=== PATIENT | male | born 1995 | race African-American/Black ===

== ENCOUNTER 2016-12-17 11:01 | Inpatient (IN) | payer OTHER ==
[2016-12-17] VITALS (7 sets, daily range): BP systolic 147–185; BP diastolic 80–97; PULSE 86–114; RESP 20–34; TEMP 98.5–99; O2SAT 96–99
[~2016-12-17] VITALS: Ht 182.9 cm; Wt 126.2 kg
[~2016-12-17 11:01] MED LIST: LEVEMIR SQ; NOVOLOGSS SQ
[2016-12-17] MEDS ORDERED: ONDANSETRON HCL 4 MG/2 ML VIAL ONE (11:29)
[2016-12-17] MEDS ORDERED: ONDANSETRON HCL 4 MG/2 ML VIAL IVP ONE (11:30)
[2016-12-17] MEDS ORDERED: MORPHINE SULFATE 4 MG/ML INJ IV ONE (11:30)
--- NOTE | 2016-12-17 11:35 | PD ---
HPI Chief Complaint: Diabetic Time Seen by Provider: 11:22 Travel History International Travel<30 days: No Contact w/Intl Traveler<30days: No Traveled to known affect area: No History of Present Illness HPI This is a 21-year-old male with a history of insolent dependent diabetes, juvenile onset, who presents today with points of epigastric pain with associated nausea vomiting. Patient also reports generalized abdominal discomfort. He denies any fevers, chills. Patient states that he's not had DKA in the past. He states he has had a history of pancreatitis in the past and states this feels like his previous peptic hepatitis. Patient reports that his blood sugar has been elevated in the 300s. There are no other complaints time my examination. PFSH Past Medical History Diabetes: Yes Diminished Hearing: No Social History Alcohol Use: No Tobacco Use: No Substance Use: No Allergies-Medications (Allergen,Severity, Reaction): Coded Allergies: No Known Allergies (Unverified , 10/03/14) Reported Meds & Prescriptions Reported Meds & Active Scripts Active Levemir Insulin (Insulin Detemir) 100 Units/Ml Inj 14 Units SQ HS Novolog Insulin Supplemental Scale (Insulin Aspart) 100 /Ml Inj 2-12 Units SQ TIDACHS Max dose at bedtime:(10)units sugars less than 70, (0)units sugars 150-199, (2)units sugars 200-249, (4)units sugars 250-299, (7)units sugars 300-349, (10)units sugars >349, (12)units Review of Systems Except as stated in HPI: all other systems reviewed are Neg General / Constitutional: No: Fever, Chills HENT: No: Headaches, Lightheadedness Cardiovascular: No: Chest Pain or Discomfort, Palpitations Respiratory: No: Cough, Shortness of Breath Gastrointestinal: Positive: Nausea, Vomiting, Abdominal Pain (worsen the epigastric), No: Changes in Bowel Habits Genitourinary: Positive: Frequency, No: Dysuria Musculoskeletal: No: Weakness, Pain Neurologic: No: Weakness, Dizziness, Headache Physical Exam Narrative GENERAL: Well-nourished, well-developed patient. SKIN: Focused skin assessment warm/dry. HEAD: Normocephalic/atraumatic. EYES: No scleral icterus. No injection or drainage. NECK: Supple, trachea midline. CARDIOVASCULAR: Regular rate and rhythm without murmurs, gallops, or rubs. RESPIRATORY: Breath sounds equal bilaterally. No accessory muscle use. GASTROINTESTINAL: Abdomen soft, nondistended. Patient has tenderness in his epigastrium. There is no rebound or guarding. No pulsatile masses. MUSCULOSKELETAL: No cyanosis, or edema. NEUROLOGICAL: Awake and alert. Cranial nerves II through XII intact. Motor grossly within normal limits. Five out of 5 muscle strength in all muscle groups. Normal speech. Data Data Last Documented VS Vital Signs Date Time Temp Pulse Resp B/P Pulse Ox O2 Delivery O2 Flow Rate FiO2 12/17/16 12:22 20 98 Room Air 12/17/16 11:03 98.5 87 172/92 Orders Ondansetron Inj (Zofran Inj) (12/17/16 11:29) Complete Blood Count With Diff (12/17/16 11:27) Comprehensive Metabolic Panel (12/17/16 11:27) Lipase (12/17/16 11:27) Urinalysis - C+S If Indicated (12/17/16 11:27) Beta Hydroxybutyrate (Acetone) (12/17/16 11:27) Morphine Inj (Morphine Inj) (12/17/16 11:30) Ondansetron Inj (Zofran Inj) (12/17/16 11:30) Digital Marketing Apprentice / Telemetry BROOKE.Q8H (12/17/16 13:05) ^ Insert Iv (12/17/16 13:05) Diet Npo (12/17/16 Lunch) Sodium Chlor 0.9% 1000 Ml Inj (Ns 1000 M (12/17/16 13:05) Dext 5%-Nacl 0.9% 1000 Ml Inj (D5w-Ns 10 (12/17/16 13:05) Insulin Human Regular Inj (Novolin R Inj (12/17/16 13:15) Insulin Regular (Iv Infusion) (Novolin R (12/17/16 13:15) Potassium Chlor 40 Meq Premix (Kcl 40 Me (12/17/16 13:15) Potassium Chlor 40 Meq Premix (Kcl 40 Me (12/17/16 13:15) Potassium Chlor 20 Meq Premix (Kcl 20 Me (12/17/16 13:15) Potassium Chlor 20 Meq Premix (Kcl 20 Me (12/17/16 13:15) Potassium Chlor 20 Meq Premix (Kcl 20 Me (12/17/16 13:15) Potassium Chlor 20 Meq Premix (Kcl 20 Me (12/17/16 13:15) Potassium Chlor 20 Meq Premix (Kcl 20 Me (12/17/16 13:15) Potassium Chlor 20 Meq Premix (Kcl 20 Me (12/17/16 13:15) Sodium Bicarbonate 8.4% Inj (Sodium Bica (12/17/16 13:15) Sodium Bicarbonate 8.4% Inj (Sodium Bica (12/17/16 13:15) Sodium Phosphate Inj (Sodium Phosphate I (12/17/16 13:15) Hemoglobin (Hgb) A1c (12/17/16 13:05) Basic Metabolic Panel (Bmp) (12/17/16 18:05) Basic Metabolic Panel (Bmp) (12/18/16 00:05) Basic Metabolic Panel (Bmp) (12/18/16 06:05) Basic Metabolic Panel (Bmp) (12/18/16 12:05) Magnesium (Mg) (12/17/16 18:05) Magnesium (Mg) (12/18/16 00:05) Magnesium (Mg) (12/18/16 06:05) Magnesium (Mg) (12/18/16 12:05) Phosphorus (Po4) (12/17/16 18:05) Phosphorus (Po4) (12/18/16 00:05) Phosphorus (Po4) (12/18/16 06:05) Phosphorus (Po4) (12/18/16 12:05) Beta Hydroxybutyrate (Acetone) (12/18/16 00:05) Hydromorphone (Dilaudid) (12/17/16 13:15) Hydromorphone Pf Inj (Dilaudid Pf Inj) (12/17/16 13:30) Prothrombin Time / Inr (Pt) (12/17/16 13:22) Act Partial Throm Time (Ptt) (12/17/16 13:22) Ct Abd/Pel W/O Iv Contrast (12/17/16 13:22) Lipid Profile (12/17/16 13:22) Admit Order (Ed Use Only) (12/17/16 13:25) Labs Laboratory Tests Test 12/17/16 12/17/16 11:50 12:45 White Blood Count 7.7 TH/MM3 Red Blood Count 5.51 MIL/MM3 Hemoglobin 15.1 GM/DL Hematocrit 45.8 % Mean Corpuscular Volume 83.2 FL Mean Corpuscular Hemoglobin 27.3 PG Mean Corpuscular Hemoglobin 32.9 % Concent Red Cell Distribution Width 15.3 % Platelet Count 275 TH/MM3 Mean Platelet Volume 10.4 FL Neutrophils (%) (Auto) 77.0 % Lymphocytes (%) (Auto) 15.8 % Monocytes (%) (Auto) 5.9 % Eosinophils (%) (Auto) 0.6 % Basophils (%) (Auto) 0.7 % Neutrophils # (Auto) 5.9 TH/MM3 Lymphocytes # (Auto) 1.2 TH/MM3 Monocytes # (Auto) 0.4 TH/MM3 Eosinophils # (Auto) 0.0 TH/MM3 Basophils # (Auto) 0.1 TH/MM3 CBC Comment DIFF FINAL Differential Comment Hematology Comments Sodium Level 128 MEQ/L Potassium Level MEQ/L Chloride Level 97 MEQ/L Carbon Dioxide Level 22.8 MEQ/L Anion Gap 8 MEQ/L Blood Urea Nitrogen 11 MG/DL Creatinine 0.76 MG/DL Estimat Glomerular Filtration 155 ML/MIN Rate Random Glucose 392 MG/DL Calcium Level 9.0 MG/DL Total Bilirubin MG/DL Aspartate Amino Transf 131 U/L (AST/SGOT) Alanine Aminotransferase 44 U/L (ALT/SGPT) Alkaline Phosphatase 64 U/L Total Protein 8.4 GM/DL Albumin 3.4 GM/DL Lipase 4723 U/L B-Hydroxybutyrate 4.28 MMOL/L Urine Color LIGHT-YELLOW Urine Turbidity CLEAR Urine pH 5.5 Urine Specific [place] 1.049 Urine Protein 100 mg/dL Urine Glucose (UA) 1000 mg/dL Urine Ketones 150 mg/dL Urine Occult Blood NEG Urine Nitrite NEG Urine Bilirubin NEG Urine Urobilinogen LESS THAN 2.0 MG/DL Urine Leukocyte Esterase NEG Urine WBC 1 /hpf Urine Squamous Epithelial <1 /hpf Cells Urine Mucus FEW /lpf Microscopic Urinalysis Comment CULT NOT INDICATED MDM Medical Decision Making Medical Screen Exam Complete: Yes Emergency Medical Condition: Yes Differential Diagnosis Pancreatitis versus DKA versus hyperglycemia versus gastroenteritis Narrative Course 21-year-old insolent dependent diabetic, presents today with mental abdominal pain with associated nausea vomiting. The patient has a blood sugar of 400. His lipase is 4700. He does have lipemic blood. This is likely the cause of his pancreatitis. Formal lipid panel has been ordered. CT scan without contrast is also been ordered as well as a PT and INR. The case was discussed with Dr. Hicks, on-call hospitals, who agrees with the admission. Diagnosis Primary Impression: Pancreatitis Additional Impressions: Hyperlipidemia due to type 1 diabetes mellitus Hyperglycemia due to type 1 diabetes mellitus Brando Enriquez MD December 17, 2016 11:35
[2016-12-17 12:35] LABS: ANION GAP 8 MEQ/L (5-15); BETA-HYDROXYBUTYRATE 4.28 MMOL/L (0.00-0.39); BICARBONATE 22.8 MEQ/L (21.0-32.0); BLOOD UREA NITROGEN 11 MG/DL (7-18); CHLORIDE 97 MEQ/L (98-107); GLOMERULAR FILTRATION RATE 155 ML/MIN (>89); SODIUM (NA) 128 MEQ/L (136-145)
[2016-12-17 12:59] LABS: AUTOMATED NEUTROPHIL # 5.9 TH/MM3 (1.8-7.7); BASOPHIL # 0.1 TH/MM3 (0-0.2); BASOPHIL % 0.7 % (0.0-2.0); EOSINOPHIL % 0.6 % (0.0-4.0); HEMATOCRIT 45.8 % (39.0-51.0); HEMO FLAGS DIFF FINAL; LYMPH % 15.8 % (9.0-44.0); LYMPHOCYTE # 1.2 TH/MM3 (1.0-4.8); MEAN CELL VOLUME 83.2 FL (80.0-100.0); MEAN CORPUSCULAR HEMOGLOBIN 27.3 PG (27.0-34.0); MEAN CORPUSCULAR HGB CONC 32.9 % (32.0-36.0); MONO % 5.9 % (0.0-8.0); PLATELET COUNT 275 TH/MM3 (150-450); RED BLOOD COUNT 5.51 MIL/MM3 (4.50-5.90); RED CELL DISTRIBUTION WIDTH 15.3 % (11.6-17.2); WHITE BLOOD COUNT 7.7 TH/MM3 (4.0-11.0)
[2016-12-17] MEDS ORDERED: SODIUM CHLOR 0.9% 1000 ML INJ 1,000 ML IV SCH ×2 (13:05→14:45)
[2016-12-17] MEDS ORDERED: DEXT 5%-NACL 0.9% 1000 ML INJ 1,000 ML IV SCH (13:05)
[2016-12-17 13:13] LABS: BLOOD, URINE NEG (NEG); COMMENT (UR) CULT NOT INDICATED; CULTURE IF INDICATED CULT NOT INDICATED; GLUCOSE,URINE 1000 mg/dL (NEG); KETONE, URINE 150 mg/dL (NEG); MUCUS URINE FEW /lpf (OCC); NITRITE,URINE NEG (NEG); PH, URINE 5.5 (5.0-8.5); SQUAMOUS EPITHELIAL CELL URINE <1 /hpf (0-5); URINE COLOR LIGHT-YELLOW (YELLW/STRAW)
[2016-12-17] MEDS ORDERED: POTASSIUM CHLOR 40 MEQ PREMIX 100 ML IV PRN ×2 (13:15)
[2016-12-17] MEDS ORDERED: HYDROmorphone HCL 2 MG TAB PO ONE (13:15)
[2016-12-17] MEDS ORDERED: SODIUM PHOSPHATE INJ 15 MMOL in SODIUM CHLORIDE 0.9% INJ 100 ML IV PRN (13:15)
[2016-12-17] MEDS ORDERED: POTASSIUM CHLOR 20 MEQ PREMIX 100 ML IV PRN ×6 (13:15)
[2016-12-17] MEDS ORDERED: INSULIN REGULAR (IV INFUSION) 100 UNITS in SODIUM CHLORIDE 0.9% INJ 99 ML IV SCH (13:15)
[2016-12-17] MEDS ORDERED: SODIUM BICARBONATE 8.4% SOLN 50 MEQ/50 ML VIAL IV PRN ×2 (13:15)
[2016-12-17] MEDS ORDERED: INSULIN HUMAN REGULAR 1,000 UNITS/10 ML VIAL IV PUSH ONE (13:15)
[2016-12-17 13:25] LABS: AST (GOT) 131 U/L (15-37)
[2016-12-17 13:27] LABS: ALKALINE PHOSPHATASE 64 U/L (45-117)
[2016-12-17] MEDS ORDERED: HYDROmorphone HCL PF 2 MG/ML VIAL IVS ONE (13:30)
[2016-12-17 13:33] LABS: ALT (GPT) 44 U/L (12-78)
[2016-12-17 13:42] LABS: TOTAL BILIRUBIN ADULT ND MG/DL (0.2-1.0)
[2016-12-17 13:59] LABS: POTASSIUM ND MEQ/L (3.5-5.1)
[2016-12-17 14:14] LABS: INTERNATIONAL NORMALIZED RATIO 0.9 RATIO
[2016-12-17 14:15] LABS: APTT (PATIENT) 21.7 SEC (24.3-30.1); PROTHROMBIN TIME - PATIENT 9.8 SEC (9.8-11.6)
[2016-12-17] MEDS ORDERED: RESP: ALBUTEROL 2.5 MG/IPRATROPIUM 0.5 MG NEB (PRN) INH (14:30)
[2016-12-17] MEDS ORDERED: GLUCAGON 1 MG/ML VIAL OTHER PRN (14:30)
[2016-12-17] MEDS ORDERED: MISCELLANEOUS NURSING INFORMATION XX SCH (14:30)
[2016-12-17] MEDS ORDERED: CHLORHEXIDINE GLUCONATE 2 % 1 PACK (2 CLOTHS) TOP PRN (14:30)
[2016-12-17] MEDS ORDERED: DEXTROSE 50% IN WATER 50 ML VIAL(D50) IV PUSH PRN ×2 (14:30→17:30)
[2016-12-17] MEDS ORDERED: SODIUM CHLOR 0.9% 1000 ML INJ 1,000 ML IV ONE (14:45)
[2016-12-17] MEDS ORDERED: DIATRIZOATE MEGLUM/DIATRIZOATE SOD 9 ML CUP PO ONE (15:00)
[2016-12-17] MEDS ORDERED: INSULIN NovoLIN REGULAR SUPPLEMENTAL SCALE SQ SCH (15:00)
--- NOTE | 2016-12-17 15:15 | MH ---
cc: RIOS ARAGON M.D. DATE OF ADMISSION: 12/17/2016 DATE OF : 1995 HISTORY OF PRESENT ILLNESS The patient is a 21-year-old male with past medical history of insulin dependent diabetes mellitus, juvenile onset, and morbid obesity, who presented to [facility] ED with a history of epigastric abdominal pain associated with nausea and vomiting. He denies any associated symptoms of fever, chills or any constitutional symptoms. In addition, he denies any chest pain, shortness of breath, orthopnea, PND or edema of the lower extremities. He has a history of pancreatitis in the past. He has not had any DKA in the past. On arrival to the ED he was found to have a blood sugar of 392 and elevated lipase level at 4723. In addition, the patient was hyponatremic with a sodium level of 128. His beta-hydroxybutyrate measured at 4.28. His potassium level was unmeasured due to hemolysis and lipemia of the blood sample. In the ER he was given 12 units of IV insulin x1, in addition to 2 liters of normal saline. The patient also received Dilaudid 2 mg IV for pain, morphine and Zofran. The patient is afebrile and is on room air oxygen when seen. He denies any diarrhea or constipation, chest pain or shortness of breath. PAST MEDICAL HISTORY 1. Diabetes mellitus. 2. Morbid obesity. 3. History of pancreatitis. SOCIAL HISTORY Non-smoker and non-drinker. ALLERGIES No known drug allergies. FAMILY HISTORY Noncontributory. MEDICATIONS Reported medications are Levemir insulin and NovoLog insulin. REVIEW OF SYSTEMS As per HPI. The rest of the review of systems is unremarkable. PHYSICAL EXAMINATION GENERAL: A 21-year-old male lying in bed in no acute respiratory distress. VITAL SIGNS: Temperature 98.5, pulse 90, respiratory rate 20, blood pressure 147/80, saturation 98-99% on room air. HEENT: Atraumatic, normocephalic. Pupils equal, round and reactive to light and accommodation. Extraocular muscles intact. Conjunctiva pink. Non-icteric sclera. Dry mucous membranes. NECK: Supple. No JVD, adenopathy or thyromegaly. Trachea in the midline. CARDIOVASCULAR: Regular rate and rhythm. Normal S1, S2. No murmurs, rubs or gallops noted. PULMONARY: Bilateral equal entry. No crackles or wheezing. ABDOMEN: Soft, obese. Mild tenderness to palpation. Positive bowel sounds. EXTREMITIES: No clubbing, cyanosis or edema. NEUROLOGIC: No focal sensory deficit. LABORATORY DATA Sodium 128, potassium hemolyzed specimen, chloride 97, CO2 22, BUN 11, creatinine 0.76, glucose 392, calcium 9, AST 131, ALT 44, total protein 8.4, lipase level 4723. WBC 7.7, hemoglobin 15, hematocrit 45, platelet count 275. Beta-hydroxybutyrate 4.28. Urinalysis positive for glucose, ketones, protein. Negative for leukocyte esterase and nitrite. 1 wbc. IMPRESSION 1. Abdominal pain. 2. Acute pancreatitis. 3. Hyperglycemia with underlying history of diabetes mellitus. 4. Elevated AST. 5. Hyponatremia. 6. Hypertension. 7. Morbid obesity. 8. History of pancreatitis. PLAN 1. Monitor neuro status and avoid any sedatives. 2. Will check baseline alcohol level and a urine drug screen. 3. Oxygen p.r.n. to maintain sats above 92%. 4. Bronchodilators on a p.r.n. basis. 5. Monitor heart rate and blood pressure and maintain MAP greater than 65 mmHg. 6. Will check baseline lactic acid level. 7. The patient received two liters of crystalloid in the ED. Will give an additional one liter bolus of normal saline and place on NS at 125 mL an hour. 8. Monitor renal function, I's and O's, and electrolyte replacement as needed. 9. Continue IV fluids as stated above. 10. Keep n.p.o. for now. 11. Monitor LFTs and lipase level. 12. Will obtain a CT scan of the abdomen and pelvis with IV contrast. 13. Will consult the GI service for acute pancreatitis and place on Protonix 40 mg IV daily for GI prophylaxis. 14. Place on empiric antibiotics in the form of Zosyn and monitor for signs of infection which includes fever and WBC. 15. Check blood cultures x2 sets. 16. Will place on medium scale sliding scale insulin with Accu-Cheks q.4h. for glycemic control. 17. Will check a lipid profile. 18. GI prophylaxis with Protonix 40 mg daily. 19. DVT prophylaxis with SCDs and heparin subcu. 20. Further recommendations will be based on the hospital course. 21. Level IV. MD DANG Price /2:40 PM /2:59 PM [facility]
[2016-12-17 15:19] LABS: HDL CHOLESTEROL 44.4 MG/DL (40.0-60.0)
[2016-12-17] MEDS ORDERED: NOVOLOGP2 SQ (15:19)
[2016-12-17] MEDS ORDERED: LEVEMIR SQ (15:19)
[2016-12-17] MEDS: PANTOPRAZOLE SODIUM 40 MG VIAL IV SCH (15:25)
[2016-12-17] MEDS: HEPARIN SODIUM - SQ 10,000 UNITS/ML VIAL SQ SCH (15:26)
--- NOTE | 2016-12-17 15:29 | PD.CONS ---
HPI History of Present Illness This is a 21 year old [gentleman] with IDDM who came to the ER today for abdominal pain. The pain started this morning and was throbbing, burning, sharp , constant, made worse after vomiting. Nausea and vomiting started this morning as well, he has not eaten since yesterday. During one episode of vomit he saw some red blood in his vomit. Admits subjective fever. He says a couple years ago he had similar but less severe symptoms and was told he had pancreatitis. He has lost 30 lbs in one year. No diarrhea. (Barbie Baltazar) PFSH Past Medical History IDDM. Past Surgical History none (Barbie Baltazar) Coded Allergies: No Known Allergies (Unverified , 10/03/14) Medications Current Medications Medications (Trade) Dose Ordered Sig/Sukhdeep Route PRN Reason Start Time Stop Time Status Last Admin Dose Admin Pantoprazole Sodium (Protonix Inj) 40 mg DAILY IV 12/17/16 15:00 Heparin Sodium (Porcine) (Heparin Inj) 5,000 units Q12H SQ 12/17/16 15:00 Miscellaneous Information 1 [id number] XX 12/17/16 14:30 Chlorhexidine Gluconate (Chlorhexidine 2% Cloth) 3 pack Taper DAILY@04 TOP 12/18/16 04:00 12/14/17 03:59 Chlorhexidine Gluconate (Chlorhexidine 2% Cloth) 3 pack UNSCH PRN TOP HYGIENIC CARE 12/17/16 14:30 Dextrose (D50w (Vial) Inj) 25 ml UNSCH PRN IV PUSH HYPOGLYCEMIA-SEE COMMENTS 12/17/16 14:30 Glucagon (Glucagon Inj) 1 mg UNSCH PRN OTHER HYPOGLYCEMIA-SEE COMMENTS 12/17/16 14:30 Insulin Human Regular 1 1 Q4H SQ 12/17/16 15:00 Sodium Chloride 1,000 ml @ 125 mls/hr Q8H IV 12/17/16 15:00 Piperacillin Sod/ Tazobactam Sod 100 ml @ 200 mls/hr Q6H IV 12/17/16 16:00 Sodium Chloride (NS 1000 ml Inj) 1,000 ml @ 999 mls/hr BOLUS ONCE IV 12/17/16 14:45 12/17/16 15:45 12/17/16 15:19 Family History DM HTN Social History Occasional ETOH Occasional cigarillo No drugs (Barbie Baltazar) Review of Systems Constitutional: COMPLAINS OF: Fever, Chills Endocrine: DENIES: Polyuria Eyes: DENIES: Blurred vision Ears, nose, mouth, throat: DENIES: Hearing loss Respiratory: DENIES: Hemoptysis Cardiovascular: DENIES: Chest pain Gastrointestinal: COMPLAINS OF: Abdominal pain, Nausea, Vomiting, DENIES: Black stools, Bloody stools, Diarrhea Genitourinary: DENIES: Urinary frequency Musculoskeletal: DENIES: Joint pain Integumentary: DENIES: Abnormal pigmentation Hematologic/lymphatic: DENIES: Bruising Psychiatric: DENIES: Confusion (Barbie Baltazar) GI Exam Vitals I&O Vital Signs Date Time Temp Pulse Resp B/P Pulse Ox O2 Delivery O2 Flow Rate FiO2 12/17/16 14:09 16 12/17/16 14:00 90 20 185/97 99 Room Air 12/17/16 13:00 86 20 147/80 99 Room Air 12/17/16 12:22 20 98 Room Air 12/17/16 11:56 18 12/17/16 11:03 98.5 87 20 172/92 99 Laboratory Test 12/17/16 12/17/16 12/17/16 11:50 12:45 13:30 White Blood Count 7.7 TH/MM3 Red Blood Count 5.51 MIL/MM3 Hemoglobin 15.1 GM/DL Hematocrit 45.8 % Mean Corpuscular Volume 83.2 FL Mean Corpuscular Hemoglobin 27.3 PG Mean Corpuscular Hemoglobin 32.9 % Concent Red Cell Distribution Width 15.3 % Platelet Count 275 TH/MM3 Mean Platelet Volume 10.4 FL Neutrophils (%) (Auto) 77.0 % Lymphocytes (%) (Auto) 15.8 % Monocytes (%) (Auto) 5.9 % Eosinophils (%) (Auto) 0.6 % Basophils (%) (Auto) 0.7 % Neutrophils # (Auto) 5.9 TH/MM3 Lymphocytes # (Auto) 1.2 TH/MM3 Monocytes # (Auto) 0.4 TH/MM3 Eosinophils # (Auto) 0.0 TH/MM3 Basophils # (Auto) 0.1 TH/MM3 CBC Comment DIFF FINAL Differential Comment Hematology Comments Sodium Level 128 MEQ/L Potassium Level MEQ/L Chloride Level 97 MEQ/L Carbon Dioxide Level 22.8 MEQ/L Anion Gap 8 MEQ/L Blood Urea Nitrogen 11 MG/DL Creatinine 0.76 MG/DL Estimat Glomerular Filtration 155 ML/MIN Rate Random Glucose 392 MG/DL Calcium Level 9.0 MG/DL Total Bilirubin MG/DL Aspartate Amino Transf 131 U/L (AST/SGOT) Alanine Aminotransferase 44 U/L (ALT/SGPT) Alkaline Phosphatase 64 U/L Total Protein 8.4 GM/DL Albumin 3.4 GM/DL Lipase 4723 U/L B-Hydroxybutyrate 4.28 MMOL/L Urine Color LIGHT-YELLOW Urine Turbidity CLEAR Urine pH 5.5 Urine Specific [place] 1.049 Urine Protein 100 mg/dL Urine Glucose (UA) 1000 mg/dL Urine Ketones 150 mg/dL Urine Occult Blood NEG Urine Nitrite NEG Urine Bilirubin NEG Urine Urobilinogen LESS THAN 2.0 MG/DL Urine Leukocyte Esterase NEG Urine WBC 1 /hpf Urine Squamous Epithelial <1 /hpf Cells Urine Mucus FEW /lpf Microscopic Urinalysis Comment CULT NOT INDICATED Prothrombin Time 9.8 SEC Prothromb Time International 0.9 RATIO Ratio Activated Partial 21.7 SEC Thromboplast Time Triglycerides Level 2462 MG/DL Date/Time Procedure Status Source Growth 12/17/16 15:10 Aerobic Blood Culture Received Blood Peripheral Pending 12/17/16 15:10 Anaerobic Blood Culture Received Blood Peripheral Pending Physical Examination HEENT: EOMI; normocephalic; atraumatic; no jaundice. CHEST: Chest is clear to auscultation and percussion. CARDIAC: Regular rate and rhythm with no murmur gallop or rubs. ABDOMEN: Soft, obese, diffusely tender; no hepatosplenomegaly; bowel sounds are present in all four quadrants. EXTREMITIES: No clubbing, cyanosis, or edema. SKIN: Normal; no rash; no jaundice. ROUSTABOUT HEAD: No focal deficits; alert and oriented times three. (Barbie Baltazar) Assessment and Plan Plan ASSESSMENT - acute pancreatitis, most likely secondary to hypertriglyceridemia. Lipase 4723. Triglycerides 2462. Drug panel pending, rest of lipid panel pending. CT abd pending. - isolated elevation AST- 131. ALT 44, ALP 64. will await CT. PLAN: - NPO for now - aggressive IV fluids - await CT abd - await rest of lab work - rck lipase am - further recommendations based on results of above - will need to be started on fenofibrate when able to tolerate PO This pt seen by myself and Dr Hill and this note was written on his behalf ( Barbie Baltazar) Physician Comments Seen and examined with TOWER SWITCH OPERATOR, clear liquid diet, Aggressive ivf resuscitation. Treat hyper triglyceridemia. Discussed with pt. and microarray analyst. Thank you ( Wale Hill MD) Barbie Baltazar December 17, 2016 15:29 Wale Hill MD December 17, 2016 16:21
[2016-12-17 16:35] LABS: AMPHETAMINE, URINE NEG (NEG); BARBITURATES, URINE NEG (NEG); COCAINE, URINE NEG (NEG)
[2016-12-17] MEDS: PIPERACIL-TAZO 4.5 GM PREMIX 100 ML IV SCH ×2 (16:42→21:51)
[2016-12-17] MEDS: SODIUM CHLOR 0.9% 1000 ML INJ 1,000 ML IV SCH (16:42)
[2016-12-17] MEDS ORDERED: MISC INFORMATION XX ONE (17:30)
[2016-12-17] MEDS: hydrALAZINE HCL 20 MG/ML VIAL IV PUSH PRN (17:53)
[2016-12-17] MEDS: ONDANSETRON HCL 4 MG/2 ML VIAL IV PUSH PRN (17:53)
[2016-12-17] MEDS: HYDROmorphone HCL PF 1 MG/ML VIAL IV PUSH PRN ×2 (17:54→21:35)
[2016-12-17] MEDS: ATORVASTATIN 20 MG TAB PO SCH (17:55)
[2016-12-17] MEDS: INSULIN REGULAR (IV INFUSION) 100 UNITS in SODIUM CHLORIDE 0.9% INJ 99 ML IV SCH (17:56)
[2016-12-17 19:40] LABS: ANION GAP 15 MEQ/L (5-15); BICARBONATE 17.3 MEQ/L (21.0-32.0); BLOOD UREA NITROGEN 7 MG/DL (7-18); CHLORIDE 100 MEQ/L (98-107); GLOMERULAR FILTRATION RATE 212 ML/MIN (>89); SODIUM (NA) 132 MEQ/L (136-145)
[2016-12-17 19:45] LABS: POTASSIUM 4.8 MEQ/L (3.5-5.1)
[2016-12-17 22:56] LABS: BLOOD GAS BASE EXCESS -7.6 mmol/L (-2-2); BLOOD GAS CARBOXYHEMOGLOBIN 1.7 % (0-4); BLOOD GAS HCO3 17 mmol/L (22-26); BLOOD GAS METHEMOGLOBIN 1.5 % (0-2); BLOOD GAS O2 HGB SATURATION 92 % (90-100); BLOOD GAS OXYGEN CONTENT 22.1 Vol % (12.0-20.0); BLOOD GAS PCO2 29 mmHg (38-42); BLOOD GAS PO2 78 mmHg (61-120); TEMP CORR TO 98.6
[2016-12-17 22:57] LABS: CRITICAL VALUE NO; DRAW SITE LT RADIAL; FIO2 21 %; NUMBER OF ARTERIAL PUNCTURES 1; STAT YES; ULNAR PULSE PRESENT
[2016-12-18] VITALS (12 sets, daily range): BP systolic 85–153; BP diastolic 51–89; PULSE 87–123; RESP 18–29; TEMP 98.5–99.7; O2SAT 95–98
[2016-12-18] MEDS ORDERED: IOHEXOL 350 MG/ML 10 ML VIAL (for RAD DIAG) IV ONE (01:17)
[2016-12-18] MEDS: ONDANSETRON HCL 4 MG/2 ML VIAL IV PUSH PRN ×4 (01:30→22:54)
[2016-12-18] MEDS: HYDROmorphone HCL PF 1 MG/ML VIAL IV PUSH PRN ×6 (01:39→22:55)
[2016-12-18] MEDS: HEPARIN SODIUM - SQ 10,000 UNITS/ML VIAL SQ SCH ×2 (02:06→13:26)
[2016-12-18] MEDS: PIPERACIL-TAZO 4.5 GM PREMIX 100 ML IV SCH ×4 (02:07→22:11)
[2016-12-18] MEDS: SODIUM CHLOR 0.9% 1000 ML INJ 1,000 ML IV SCH ×6 (02:07→22:11)
--- NOTE | 2016-12-18 02:24 | RADRPT ---
EXAM DATE/TIME: 12/18/2016 00:51 [facility] COMPARISON: No previous studies available for comparison. INDICATIONS : Abdominal pain. Acute pancreatitis. IV CONTRAST: 100 cc Omnipaque 350 (iohexol) IV ORAL CONTRAST: Partial prescribed oral contrast ingested. RADIATION DOSE: 20.96 CTDIvol (mGy) MEDICAL HISTORY : Diabetes mellitus type 2. SURGICAL HISTORY : None. ENCOUNTER: Initial ACUITY: 1 day PAIN SCALE: 9/10 LOCATION: abdomen TECHNIQUE: Volumetric scanning of the abdomen and pelvis was performed. Using automated exposure control and ad justment of the mA and/or kV according to patient size, radiation dose was kept as low as reasonably achievable to obtain optimal diagnostic quality images. FINDINGS: LOWER LUNGS: The visualized lower lungs are clear. LIVER: Decreased attenuation without lesion. There is no dilation of the biliary tree. No calcified gallst ones. SPLEEN: Normal size without lesion. PANCREAS: Prominent fluid and inflammatory changes adjacent to pancreas. Fluid tracks in the paracolic gutters and into the pelvis. No abscess or pseudocyst. No hemorrhage. KIDNEYS: Normal in size and shape. There is no mass, stone or hydronephrosis. ADRENAL GLANDS: Within normal limits. VASCULAR: There is no aortic aneurysm. BOWEL/MESENTERY: The stomach, small bowel, and colon demonstrate no acute abnormality. There is no free intraperitone al air or fluid. ABDOMINAL WALL: Within normal limits. RETROPERITONEUM: There is no lymphadenopathy. BLADDER: No wall thickening or mass. REPRODUCTIVE: Within normal limits. INGUINAL: There is no lymphadenopathy or hernia. MUSCULOSKELETAL: Within normal limits for patient age. CONCLUSION: 1. Findings consistent with acute pancreatitis. Prominent fluid adjacent to the pancreas and tracking into the paracolic gutters and pelvis. 2. Mild hepatic steatosis. Emanuel Dimas MD on December 18, 2016 at 2:20 Board Certified Radiologist. This report was verified electronically.
[2016-12-18] MEDS: CHLORHEXIDINE GLUCONATE 2 % 1 PACK (2 CLOTHS) TOP SCH (04:00)
[2016-12-18 04:08] LABS: AUTOMATED NEUTROPHIL # 5.1 TH/MM3 (1.8-7.7); BASOPHIL % 0.1 % (0.0-2.0); LYMPH % 8.8 % (9.0-44.0); LYMPHOCYTE # 0.5 TH/MM3 (1.0-4.8); MEAN CELL VOLUME 82.4 FL (80.0-100.0); MEAN CORPUSCULAR HEMOGLOBIN 28.3 PG (27.0-34.0); MEAN CORPUSCULAR HGB CONC 34.3 % (32.0-36.0); NEUT % 83.1 % (16.0-70.0); PLATELET COUNT 246 TH/MM3 (150-450); RED BLOOD COUNT 6.19 MIL/MM3 (4.50-5.90); RED CELL DISTRIBUTION WIDTH 14.7 % (11.6-17.2); WHITE BLOOD COUNT 6.1 TH/MM3 (4.0-11.0)
[2016-12-18 04:10] LABS: HEMO FLAGS AUTO DIFF
[2016-12-18 04:33] LABS: ALT (GPT) 26 U/L (12-78); ANION GAP 13 MEQ/L (5-15); AST (GOT) 17 U/L (15-37); BLOOD UREA NITROGEN 9 MG/DL (7-18); CHLORIDE 103 MEQ/L (98-107); MAGNESIUM 1.5 MG/DL (1.5-2.5); POTASSIUM 4.3 MEQ/L (3.5-5.1); SODIUM (NA) 134 MEQ/L (136-145)
[2016-12-18 04:35] LABS: ALKALINE PHOSPHATASE 55 U/L (45-117); TOTAL BILIRUBIN ADULT 0.5 MG/DL (0.2-1.0)
[2016-12-18 05:00] LABS: BANDS 25 % (0-6); METAMYELOCYTES 1 % (0-1); PLATELET ESTIMATE SMEAR NORMAL (NORMAL); PLATELET MORPHOLOGY NORMAL (NORMAL); POLYS (SEG NEUTROPHILS) 56 % (16-70); SCAN/DIFF FINAL DIFF MANUAL; WBC DIFF SAMPLE 100
[2016-12-18] MEDS ORDERED: ONDANSETRON HCL 4 MG/2 ML VIAL IV PUSH PRN (06:51)
[2016-12-18] MEDS: PANTOPRAZOLE SODIUM 40 MG VIAL IV SCH (09:38)
[2016-12-18] MEDS: ATORVASTATIN 20 MG TAB PO SCH (09:38)
[2016-12-18] MEDS ORDERED: SODIUM PHOSPHATE INJ 15 MMOL in SODIUM CHLORIDE 0.9% INJ 150 ML IV ONE (12:00)
--- NOTE | 2016-12-18 12:14 | HHI.CCPN ---
Subjective Remarks/Hospital Course The patient is a 21-year-old male with past medical history of insulin dependent diabetes mellitus, juvenile onset, and morbid obesity, who presented to [facility] ED with a history of epigastric abdominal painassociated with nausea and vomiting. He denies any associated symptoms of fever, chills or any constitutional symptoms. In addition, he denies any chest pain, shortness of breath, orthopnea, PND or edema of the lower extremities.He has a history of pancreatitis in the past. He has not had any DKA in the past. On arrival to the ED he was found to have a blood sugar of 392 and elevated lipase level at 4723. In addition, the patient was hyponatremic with a sodium level of 128. His beta hydroxybutyrate measured at 4.28. His potassium level was unmeasured due to hemolysis and lipemia of the blood sample. In the ER he was given 12 units of IV insulin x1, in addition to 2 liters of normal saline. The patient also received Dilaudid 2 mg IV for pain, morphine and Zofran. The patient is afebrile and is on room air oxygen when seen. He denies any diarrhea or constipation, chest pain or shortness of breath. Subjective 5/6: Resting comfortably in bed. Requiring Dilaudid every 2 hours for pain management. Afebrile. Complaining of nausea. Triglycerides 273 today. Lipase ~ 2400 Objective Vital Signs Date Time Temp Pulse Resp B/P Pulse Ox O2 Delivery O2 Flow Rate FiO2 12/18/16 06:00 109 12/18/16 04:00 99.0 20 85/51 95 12/17/16 14:00 Room Air Intake and Output 12/17/16 12/17/16 12/18/16 08:00 16:00 00:00 Intake Total 930 ml Output Total 1300 ml Balance -370 ml Result Diagram: 12/18/16 0320 12/18/16 0320 Other Results Microbiology Date/Time Procedure Status Source Growth 12/17/16 15:10 Aerobic Blood Culture - Preliminary Resulted Blood Peripheral NO GROWTH IN 1 DAY 12/17/16 15:10 Anaerobic Blood Culture - Preliminary Resulted Blood Peripheral NO GROWTH IN 1 DAY Imaging Last Impressions Abdomen/Pelvis CT 12/17/16 0000 Signed Impressions: Service Date/Time: Sunday, December 18, 2016 00:51 - CONCLUSION: 1. Findings consistent with acute pancreatitis. Prominent fluid adjacent to the pancreas and tracking into the paracolic gutters and pelvis. 2. Mild hepatic steatosis. Emanuel Dimas MD Objective Remarks GENERAL: 21-year-old male, lying in bed in no acute distress SKIN: Warm and dry. HEAD: Atraumatic. Normocephalic. EYES: Pupils equal and round. No scleral icterus. No injection or drainage. ENT: No nasal bleeding or discharge. Mucous membranes pink and moist. NECK: Trachea midline. No JVD. CARDIOVASCULAR: Regular rate and rhythm. S1, S2 no S4. RESPIRATORY: Clear to auscultation. Breath sounds equal bilaterally. GASTROINTESTINAL: Abdomen soft, tender to palpation epigastric region. Voluntary guarding. No rigidity. MUSCULOSKELETAL: Extremities without significant peripheral edema. No obvious deformities. NEUROLOGICAL: Awake and alert. No obvious cranial nerve deficits. Motor grossly within normal limits. Five out of 5 muscle strength in the arms and legs. Normal speech. PSYCHIATRIC: Appropriate mood and affect; insight and judgment normal. A/P Assessment and Plan Neuro/Psych: Dilaudid 1 mg IV every 2 hours when necessary pain management CV: Hypertriglyceridemia Currently on normal saline at 125 cc an hour. Not requiring antihypertensives and/or vasopressors at this time On gemfibrozil 600 twice a day and Lipitor 20 daily On insulin drip for maintenance of hypertriglyceridemia. Currently 273 this a.m. likely will not need plasmapheresis at this time. Resp: Nasal cannula to maintain saturations greater than equal to 92% Incentive spirometry while awake GI: Pancreatitis secondary to hypertriglyceridemia CT abdomen/pelvis 12/17 revealed pancreatic inflammation with fluid. Lipase 2400 today. : [place] if indicated for accurate I's and O's in a critically ill patient Endo: Diabetes mellitus Renal: Monitor urine output Accurate I's and O's Follow BMP in a.m. Heme: Polycythemia Follow CBC daily. Monitor trends ID: Monitor for infection FEN: Hyponatremia Hypophosphatemia Hypo-magnesium 2 g mag sulfate, 15 mmol sodium phosphate. Recheck in a.m. MSK: Obesity Weight loss encouraged Access - Utilize peripheral IV. Central line if indicated Prophylaxis - GI - Protonix - DVT - SCD/heparin subcutaneous Critical Care: The total critical care time was 35 minutes. Time to perform other separately billable procedures was not included in the critical care time. Deniz Basurto MD December 18, 2016 12:14
--- NOTE | 2016-12-18 12:16 | HHI.CCPN ---
Subjective Remarks/Hospital Course The patient is a 21-year-old male with past medical history of insulin dependent diabetes mellitus, juvenile onset, and morbid obesity, who presented to [facility] ED with a history of epigastric abdominal painassociated with nausea and vomiting. He denies any associated symptoms of fever, chills or any constitutional symptoms. In addition, he denies any chest pain, shortness of breath, orthopnea, PND or edema of the lower extremities.He has a history of pancreatitis in the past. He has not had any DKA in the past. On arrival to the ED he was found to have a blood sugar of 392 and elevated lipase level at 4723. In addition, the patient was hyponatremic with a sodium level of 128. His beta hydroxybutyrate measured at 4.28. His potassium level was unmeasured due to hemolysis and lipemia of the blood sample. In the ER he was given 12 units of IV insulin x1, in addition to 2 liters of normal saline. The patient also received Dilaudid 2 mg IV for pain, morphine and Zofran. The patient is afebrile and is on room air oxygen when seen. He denies any diarrhea or constipation, chest pain or shortness of breath. Subjective 5/6: Resting comfortably in bed. Requiring Dilaudid every 2 hours for pain management. Afebrile. Complaining of nausea. Triglycerides 273 today. Lipase ~ 2400 Objective Vital Signs Date Time Temp Pulse Resp B/P Pulse Ox O2 Delivery O2 Flow Rate FiO2 12/18/16 06:00 109 12/18/16 04:00 99.0 20 85/51 95 12/17/16 14:00 Room Air Intake and Output 12/17/16 12/17/16 12/18/16 08:00 16:00 00:00 Intake Total 930 ml Output Total 1300 ml Balance -370 ml Result Diagram: 12/18/16 0320 12/18/16 0320 Other Results Laboratory Tests Test 12/17/16 22:40 Blood Gas Puncture Site LT RADIAL Blood Gas Patient Temperature 98.6 Blood Gas HCO3 17 mmol/L (22-26) Blood Gas Base Excess -7.6 mmol/L (-2-2) Blood Gas Oxygen Saturation 92 % (90-100) Arterial Blood pH 7.37 (7.380-7.420) Arterial Blood Partial 29 mmHg (38-42) Pressure CO2 Arterial Blood Partial 78 mmHg Pressure O2 (61-120) Arterial Blood Oxygen Content 22.1 Vol % (12.0-20.0) Arterial Blood 1.7 % (0-4) Carboxyhemoglobin Arterial Blood Methemoglobin 1.5 % (0-2) Blood Gas Hemoglobin 17.0 G/DL (12.0-16.0) Blood Gas Inspired Oxygen 21 % Imaging Last Impressions Abdomen/Pelvis CT 12/17/16 0000 Signed Impressions: Service Date/Time: Sunday, December 18, 2016 00:51 - CONCLUSION: 1. Findings consistent with acute pancreatitis. Prominent fluid adjacent to the pancreas and tracking into the paracolic gutters and pelvis. 2. Mild hepatic steatosis. Emanuel Dimas MD Objective Remarks GENERAL: 21-year-old male, lying in bed in no acute distress SKIN: Warm and dry. HEAD: Atraumatic. Normocephalic. EYES: Pupils equal and round. No scleral icterus. No injection or drainage. ENT: No nasal bleeding or discharge. Mucous membranes pink and moist. NECK: Trachea midline. No JVD. CARDIOVASCULAR: Regular rate and rhythm. S1, S2 no S4. RESPIRATORY: Clear to auscultation. Breath sounds equal bilaterally. GASTROINTESTINAL: Abdomen soft, tender to palpation epigastric region. Voluntary guarding. No rigidity. MUSCULOSKELETAL: Extremities without significant peripheral edema. No obvious deformities. NEUROLOGICAL: Awake and alert. No obvious cranial nerve deficits. Motor grossly within normal limits. Five out of 5 muscle strength in the arms and legs. Normal speech. PSYCHIATRIC: Appropriate mood and affect; insight and judgment normal. A/P Assessment and Plan Neuro/Psych: Dilaudid 1 mg IV every 2 hours when necessary pain management CV: Hypertriglyceridemia Currently on normal saline at 125 cc an hour. Not requiring antihypertensives and/or vasopressors at this time On gemfibrozil 600 twice a day and Lipitor 20 daily On insulin drip for maintenance of hypertriglyceridemia. Currently 273 this a.m. likely will not need plasmapheresis at this time. Resp: Nasal cannula to maintain saturations greater than equal to 92% Incentive spirometry while awake GI: Pancreatitis secondary to hypertriglyceridemia CT abdomen/pelvis 12/17 revealed pancreatic inflammation with fluid. Lipase 2400 today. Recheck in a.m. : Sonal if indicated for accurate I's and O's in a critically ill patient Endo: Diabetes mellitus Currently on insulin drip On Levemir 14 units at night insulin scale insulin 2 to 15 units as needed with meals at home Renal: Monitor urine output Accurate I's and O's Follow BMP in a.m. Heme: Polycythemia Follow CBC daily. Monitor trends ID: Monitor for infection FEN: Hyponatremia Hypophosphatemia Hypo-magnesium 2 g mag sulfate, 15 mmol sodium phosphate. Recheck in a.m. MSK: Obesity Weight loss encouraged Access - Utilize peripheral IV. Central line if indicated Prophylaxis - GI - Protonix - DVT - SCD/heparin subcutaneous Critical Care: The total critical care time was 35 minutes. Time to perform other separately billable procedures was not included in the critical care time. Deniz Basurto MD December 18, 2016 12:15
[2016-12-18] MEDS: MAGNESIUM SULFATE 1 GM PREMIX 100 ML IV SCH ×2 (13:26→15:40)
[2016-12-18 13:32] LABS: HEMOGLOBIN A1a 1.3 %; HEMOGLOBIN Ao 73.9 %; HEMOGLOBIN F 2.9 %; HEMOGLOBIN LA1C 2.9 %; HEMOGLOBIN P3 5.2 %
--- NOTE | 2016-12-18 13:43 | MB ---
cc: ALPHONSO CHAPA M.D. DATE OF CONSULTATION: 12/18/[address] Hicks REASON FOR CONSULTATION Hematology consulted to consider plasma exchange for a patient with acute pancreatitis and hypertriglyceridemia. HISTORY OF PRESENT ILLNESS The patient is a 21-year-old with history of insulin dependent diabetes, presented to hospital with increased mid epigastric pain, nausea and vomiting which started yesterday morning and he has history of a recurrent pancreatitis and stated is the same pain he had experiencing. On arrival his blood glucose was 392. Lipase was for more than 4700. His triglyceride level was more than 2400. He was evaluated by gastroenterology and recommended to consider plasma exchange. This morning the patient was started on insulin when he first arrived. He is feeling better. He still has abdominal pain but it has improved. He has low grade temperature and he denies any headache, visual changes. Denies any chest pain, palpitation, shortness of breath or cough. Denies any diarrhea. PAST MEDICAL HISTORY Diabetes mellitus insulin dependent Obesity Recurrent pancreatitis. PAST SURGICAL HISTORY None. FAMILY HISTORY Noncontributory. SOCIAL HISTORY Denies tobacco use. Occasional alcohol. ALLERGIES No known drug allergy. CURRENT MEDICATIONS 1. Dilaudid. 2. Insulin. 3. Hydralazine p.r.n. 4. Lipitor 5. Zosyn. 6. Protonix. 7. Heparin. REVIEW OF SYSTEMS CONSTITUTIONAL: Denies any chills and low grade temperature. EYES: Denies blurry vision or vision. ENT: No denies any mouth sore voice changes. CARDIOVASCULAR: No chest pressure, palpitation. RESPIRATORY: Denies any shortness of breath, cough. GI: As above. : No dysuria, hematuria. MUSCULOSKELETAL: Negative. HEMATOLOGIC: Hematology negative. ENDOCRINE: Negative DERMATOLOGY: Negative. PSYCHIATRIC: Negative. NEUROLOGIC: Negative. PHYSICAL EXAMINATION VITAL SIGNS: Afebrile, blood pressure 85/51, O2 saturation 95%. IN GENERAL: He is alert and oriented times three. No acute distress. He is obese. HEAD, EYES, EARS, NOSE, AND THROAT: Atraumatic, cephalic. Pupils equal, round and light. Extraocular muscles intact. No scleral icterus. Oropharynx dry mucosa. No lesion or thrush mucositis. NECK: No thyromegaly. No palpable masses. LYMPHATIC: No palpable cervical, clavicular, axillary or inguinal lymph nodes. CARDIOVASCULAR SYSTEM: Regular S1-S2 no murmur. Mildly tachycardiac. RESPIRATORY: Clear to auscultation anteriorly. ABDOMEN: Soft, nontender in the upper abdomen. No rebound or rigidity. Positive bowel sound. EXTREMITIES: No cyanosis, clubbing or edema or calf tenderness. BACK: No paravertebral tenderness. SKIN: No rash or petechia. NEUROLOGIC: Nonfocal. LABORATORY DATA CBC within normal limits, <<3:41>> site level 273, random glucose of 259, lipase 2430. ASSESSMENT 1. Acute pancreatitis due to hyper glycemia and hypertriglyceridemia. He has history of recurrent pancreatitis. He presented with triglyceride level of 2462, blood glucose 392 and lipase of 4723. He was evaluated by GI and recommended to consider plasma exchange. He was started on insulin and hydration. When I saw him this morning he is feeling better. His triglyceride level has trended down to 273. His lipase is 2430. His abdominal pain has improved. There is no indication for plasma exchange at this time. 2. Diabetes mellitus insulin dependent. 3. Obesity. RECOMMENDATIONS Review of his record. There is no indication for plasma exchange at this time since the patient has great response to insulin and hydration. I would be happy to see him back if his triglyceride level trended up again. Thank you Dr. Hicks for asking us see this patient. MD JENNIFER Griggs/mario alberto /11:01 AM /1:27 PM MELISA
--- NOTE | 2016-12-18 15:13 | HHI.GIFU ---
Subjective Remarks Patient is resting in bed, still with LUQ pain that radiates to right side. ( Leona Adames EVA) Objective Vitals I&O Vital Signs Date Time Temp Pulse Resp B/P Pulse Ox O2 Delivery O2 Flow Rate FiO2 12/18/16 06:00 109 12/18/16 04:00 99.0 87 20 85/51 95 12/18/16 04:00 87 12/18/16 02:00 123 12/18/16 00:00 99.0 108 24 153/89 96 12/18/16 00:00 118 12/17/16 22:00 114 12/17/16 20:00 99.0 108 24 180/90 96 12/17/16 20:00 108 12/17/16 18:24 19 12/17/16 18:00 100 12/17/16 16:00 98.8 94 34 165/96 96 12/17/16 16:00 91 I/O 12/17/16 12/17/16 12/17/16 12/18/16 12/18/16 12/18/16 07:00 15:00 23:00 07:00 15:00 23:00 Intake Total 930 ml 555 ml Output Total 1300 ml 450 ml Balance -370 ml 105 ml Intake Oral 80 ml IV Total 850 ml 555 ml Output Urine Total 1300 ml 450 ml Stool Total 0 ml 0 ml Laboratory Laboratory Tests Test 12/17/16 12/17/16 12/17/16 12/17/16 15:10 16:00 18:19 22:40 Lactic Acid Level 0.4 Nasal Screen MRSA (PCR) MRSA NOT DETECTED Sodium Level 132 Potassium Level 4.8 Chloride Level 100 Carbon Dioxide Level 17.3 Anion Gap 15 Blood Urea Nitrogen 7 Creatinine 0.58 Estimat Glomerular Filtration 212 Rate Random Glucose 300 Hemoglobin A1c 13.8 Calcium Level 8.0 Blood Gas Puncture Site LT RADIAL Blood Gas Patient Temperature 98.6 Blood Gas HCO3 17 Blood Gas Base Excess -7.6 Blood Gas Oxygen Saturation 92 Arterial Blood pH 7.37 Arterial Blood Partial 29 Pressure CO2 Arterial Blood Partial 78 Pressure O2 Arterial Blood Oxygen Content 22.1 Arterial Blood 1.7 Carboxyhemoglobin Arterial Blood Methemoglobin 1.5 Blood Gas Hemoglobin 17.0 Blood Gas Inspired Oxygen 21 Test 12/18/16 12/18/16 00:17 03:20 B-Hydroxybutyrate 1.12 White Blood Count 6.1 Red Blood Count 6.19 Hemoglobin 17.5 Hematocrit 51.0 Mean Corpuscular Volume 82.4 Mean Corpuscular Hemoglobin 28.3 Mean Corpuscular Hemoglobin 34.3 Concent Red Cell Distribution Width 14.7 Platelet Count 246 Mean Platelet Volume 8.9 Neutrophils (%) (Auto) 83.1 Lymphocytes (%) (Auto) 8.8 Monocytes (%) (Auto) 8.0 Eosinophils (%) (Auto) 0.0 Basophils (%) (Auto) 0.1 Neutrophils # (Auto) 5.1 Lymphocytes # (Auto) 0.5 Monocytes # (Auto) 0.5 Eosinophils # (Auto) 0.0 Basophils # (Auto) 0.0 CBC Comment AUTO DIFF Differential Total Cells 100 Counted Neutrophils % (Manual) 56 Band Neutrophils % 25 Lymphocytes % 12 Monocytes % 6 Neutrophils # (Manual) 5.0 Metamyelocytes 1 Differential Comment FINAL DIFF MANUAL Platelet Estimate NORMAL Platelet Morphology Comment NORMAL Sodium Level 134 Potassium Level 4.3 Chloride Level 103 Carbon Dioxide Level 18.0 Anion Gap 13 Blood Urea Nitrogen 9 Creatinine 0.65 Random Glucose 259 Calcium Level 8.3 Phosphorus Level 2.2 Magnesium Level 1.5 Total Bilirubin 0.5 Aspartate Amino Transf 17 (AST/SGOT) Alanine Aminotransferase 26 (ALT/SGPT) Alkaline Phosphatase 55 Total Protein 7.1 Albumin 3.1 Triglycerides Level 273 Lipase 2430 Date/Time Procedure Status Source Growth 12/17/16 15:10 Aerobic Blood Culture - Preliminary Resulted Blood Peripheral NO GROWTH IN 1 DAY 12/17/16 15:10 Anaerobic Blood Culture - Preliminary Resulted Blood Peripheral NO GROWTH IN 1 DAY Imaging Last Impressions Abdomen/Pelvis CT 12/17/16 0000 Signed Impressions: Service Date/Time: Sunday, December 18, 2016 00:51 - CONCLUSION: 1. Findings consistent with acute pancreatitis. Prominent fluid adjacent to the pancreas and tracking into the paracolic gutters and pelvis. 2. Mild hepatic steatosis. Emanuel Dimas MD Physical Exam HEENT: Pupils round and reactive to light; normocephalic; atraumatic; no jaundice. NECK: Neck is supple, no JVD, no lymphadenopathy. CHEST: Chest is clear to auscultation and percussion. CARDIAC: Regular rate and rhythm with no murmur gallop or rubs. ABDOMEN: Soft, nondistended, severe LUQ abdomen pain upon palpation ; no hepatosplenomegaly; bowel sounds are present in all four quadrants. EXTREMITIES: No clubbing, cyanosis, or edema. SKIN: Normal; no rash; no jaundice. METEOROLOGY TEACHER: No focal deficits; alert and oriented times three. (Leona Adames) Assessment and Plan Plan ASSESSMENT - acute pancreatitis, most likely secondary to hypertriglyceridemia. Lipase 4723--->2430. Triglycerides 2462---->273. LFTs normal .Drug panel pos for marijuana , he is not a heavy drinker. CT (12/17/16) 1. Findings consistent with acute pancreatitis. Prominent fluid adjacent to the pancreas and tracking into the paracolic gutters and pelvis. 2. Mild hepatic steatosis S/P hematology consult, no need for plasmapheresis, since patient is responding well - Chronic high triglycerides and was on fenofibrate before PLAN: - Clear liquids - aggressive IV fluids - lipase in am - Consider EGD - further recommendations based on results of above This pt seen by myself and Dr Hill and this note was written on his behalf ( Leona Adames) Physician Comments Sen and examined with EVA, feeling better, labs improving. Clear liquid diet. IVF. (Wale Hill MD) Leona Adames December 18, 2016 15:13 Wale Hill MD December 18, 2016 15:35
[2016-12-18] MEDS: GEMFIBROZIL 600 MG TAB PO SCH (15:40)
[2016-12-18] MEDS: INSULIN REGULAR (IV INFUSION) 100 UNITS in SODIUM CHLORIDE 0.9% INJ 99 ML IV SCH (22:11)
[2016-12-19] VITALS (13 sets, daily range): BP systolic 109–142; BP diastolic 55–95; PULSE 86–104; RESP 17–30; TEMP 97.9–99.9; O2SAT 93–95
[2016-12-19] MEDS: HYDROmorphone HCL PF 1 MG/ML VIAL IV PUSH PRN ×7 (02:40→21:32)
[2016-12-19] MEDS: HEPARIN SODIUM - SQ 10,000 UNITS/ML VIAL SQ SCH ×2 (03:39→16:24)
[2016-12-19] MEDS: PIPERACIL-TAZO 4.5 GM PREMIX 100 ML IV SCH ×4 (03:39→21:31)
[2016-12-19] MEDS: ONDANSETRON HCL 4 MG/2 ML VIAL IV PUSH PRN ×4 (03:39→21:32)
[2016-12-19] MEDS: CHLORHEXIDINE GLUCONATE 2 % 1 PACK (2 CLOTHS) TOP SCH (04:00)
[2016-12-19 05:07] LABS: AUTOMATED NEUTROPHIL # 4.3 TH/MM3 (1.8-7.7); BASOPHIL % 0.3 % (0.0-2.0); EOSINOPHIL % 0.3 % (0.0-4.0); HEMATOCRIT 41.6 % (39.0-51.0); HEMO FLAGS DIFF FINAL; LYMPH % 11.2 % (9.0-44.0); LYMPHOCYTE # 0.6 TH/MM3 (1.0-4.8); MEAN CELL VOLUME 83.4 FL (80.0-100.0); MEAN CORPUSCULAR HEMOGLOBIN 28.4 PG (27.0-34.0); MEAN CORPUSCULAR HGB CONC 34.1 % (32.0-36.0); MONO % 8.8 % (0.0-8.0); NEUT % 79.4 % (16.0-70.0); PLATELET COUNT 196 TH/MM3 (150-450); RED BLOOD COUNT 4.99 MIL/MM3 (4.50-5.90); RED CELL DISTRIBUTION WIDTH 15.4 % (11.6-17.2); WHITE BLOOD COUNT 5.4 TH/MM3 (4.0-11.0)
[2016-12-19 05:40] LABS: ALKALINE PHOSPHATASE 45 U/L (45-117); ALT (GPT) 16 U/L (12-78); ANION GAP 12 MEQ/L (5-15); AST (GOT) 11 U/L (15-37); BICARBONATE 22.3 MEQ/L (21.0-32.0); BLOOD UREA NITROGEN 10 MG/DL (7-18); CHLORIDE 103 MEQ/L (98-107); GLOMERULAR FILTRATION RATE 231 ML/MIN (>89); POTASSIUM 3.4 MEQ/L (3.5-5.1); SODIUM (NA) 137 MEQ/L (136-145); TOTAL BILIRUBIN ADULT 0.5 MG/DL (0.2-1.0)
[2016-12-19] MEDS ORDERED: SODIUM PHOSPHATE INJ 30 MMOL in SODIUM CHLOR 0.9% 250 ML INJ 250 ML IV ONE (06:45)
[2016-12-19] MEDS ORDERED: POTASSIUM CHLORIDE 20 MEQ CONTROLLED RELEASE TAB PO ONE (06:45)
[2016-12-19] MEDS: GEMFIBROZIL 600 MG TAB PO SCH ×2 (06:52→16:25)
[2016-12-19] MEDS: SODIUM CHLOR 0.9% 1000 ML INJ 1,000 ML IV SCH ×3 (06:53→21:33)
[2016-12-19] MEDS: PANTOPRAZOLE SODIUM 40 MG VIAL IV SCH (08:00)
[2016-12-19] MEDS: ATORVASTATIN 20 MG TAB PO SCH (08:01)
[2016-12-19] MEDS ORDERED: GLUCAGON 1 MG/ML VIAL OTHER PRN (09:30)
[2016-12-19] MEDS ORDERED: DEXTROSE 50% IN WATER 50 ML VIAL(D50) IV PUSH PRN (09:30)
--- NOTE | 2016-12-19 10:15 | HHI.CCPN ---
Subjective Remarks/Hospital Course The patient is a 21-year-old male with past medical history of insulin dependent diabetes mellitus, juvenile onset, and morbid obesity, who presented to [facility] ED with a history of epigastric abdominal painassociated with nausea and vomiting. He denies any associated symptoms of fever, chills or any constitutional symptoms. In addition, he denies any chest pain, shortness of breath, orthopnea, PND or edema of the lower extremities.He has a history of pancreatitis in the past. He has not had any DKA in the past. On arrival to the ED he was found to have a blood sugar of 392 and elevated lipase level at 4723. In addition, the patient was hyponatremic with a sodium level of 128. His beta hydroxybutyrate measured at 4.28. His potassium level was unmeasured due to hemolysis and lipemia of the blood sample. In the ER he was given 12 units of IV insulin x1, in addition to 2 liters of normal saline. The patient also received Dilaudid 2 mg IV for pain, morphine and Zofran. The patient is afebrile and is on room air oxygen when seen. He denies any diarrhea or constipation, chest pain or shortness of breath. 5/6: Resting comfortably in bed. Requiring Dilaudid every 2 hours for pain management. Afebrile. Complaining of nausea. Triglycerides 273 today. Lipase ~ 2400 Subjective 12/19: Resting comfortably in bed. 3 episodes of emesis/billous overnight. Abdominal pain controlled with Dilaudid. Tolerating clear liquid diet. Objective Vital Signs Date Time Temp Pulse Resp B/P Pulse Ox O2 Delivery O2 Flow Rate FiO2 12/19/16 08:00 90 12/19/16 04:00 98.5 30 127/80 93 12/17/16 14:00 Room Air Intake and Output 12/18/16 12/18/16 12/19/16 08:00 16:00 00:00 Intake Total 555 ml 1785 ml 891 ml Output Total 450 ml 860 ml 750 ml Balance 105 ml 925 ml 141 ml Result Diagram: 12/19/16 0339 12/19/16 0339 Other Results Microbiology Date/Time Procedure Status Source Growth 12/17/16 15:10 Aerobic Blood Culture - Preliminary Resulted Blood Peripheral NO GROWTH IN 1 DAY 12/17/16 15:10 Anaerobic Blood Culture - Preliminary Resulted Blood Peripheral NO GROWTH IN 1 DAY Imaging Last Impressions Abdomen/Pelvis CT 12/17/16 0000 Signed Impressions: Service Date/Time: Sunday, December 18, 2016 00:51 - CONCLUSION: 1. Findings consistent with acute pancreatitis. Prominent fluid adjacent to the pancreas and tracking into the paracolic gutters and pelvis. 2. Mild hepatic steatosis. Emanuel Dimas MD Objective Remarks GENERAL: 21-year-old male, lying in bed in no acute distress SKIN: Warm and dry. HEAD: Atraumatic. Normocephalic. EYES: Pupils equal and round. No scleral icterus. No injection or drainage. ENT: No nasal bleeding or discharge. Mucous membranes pink and moist. NECK: Trachea midline. No JVD. CARDIOVASCULAR: Regular rate and rhythm. S1, S2 no S4. RESPIRATORY: Clear to auscultation. Breath sounds equal bilaterally. GASTROINTESTINAL: Abdomen soft, tender to palpation epigastric region. Voluntary guarding. No rigidity. MUSCULOSKELETAL: Extremities without significant peripheral edema. No obvious deformities. NEUROLOGICAL: Awake and alert. No obvious cranial nerve deficits. Motor grossly within normal limits. Five out of 5 muscle strength in the arms and legs. Normal speech. PSYCHIATRIC: Appropriate mood and affect; insight and judgment normal. A/P Assessment and Plan Neuro/Psych: Dilaudid 1 mg IV every 2 hours when necessary pain management CV: Hypertriglyceridemia Currently on normal saline at 125 cc an hour. Not requiring antihypertensives and/or vasopressors at this time On gemfibrozil 600 twice a day and Lipitor 20 daily for elevated triglycerides On insulin drip for maintenance of hypertriglyceridemia. Currently 247 this a.m. - will not need plasmapheresis at this time. Recheck in a.m. Resp: Nasal cannula to maintain saturations greater than equal to 92% Incentive spirometry while awake GI: Pancreatitis secondary to hypertriglyceridemia CT abdomen/pelvis 12/17 revealed pancreatic inflammation with fluid pericolic gutters. Lipase 573 today and trending downward. Recheck in a.m. : Sonal if indicated for accurate I's and O's in a critically ill patient Endo: Diabetes mellitus Currently on insulin drip. We'll switch to Levemir 5 units twice a day with sliding scale insulin/moderate regimen before meals/at bedtime 0300 On Levemir 14 units at night insulin scale insulin 2 to 15 units as needed with meals at home Renal: Monitor urine output Accurate I's and O's Follow BMP in a.m. Heme: Polycythemia Follow CBC daily. Monitor trends ID: Monitor for infection FEN: Hypokalemia Hypophosphatemia Replace electrolytes as clinically indicated MSK: Obesity Weight loss encouraged Access - Utilize peripheral IV. Central line if indicated Prophylaxis - GI - Protonix - DVT - SCD/heparin subcutaneous Critical Care: The total care time was 35 minutes. Time to perform other separately billable procedures was not included in the critical care time. Patient is stable from a critical care medicine standpoint. We'll assign to hospitalist in a.m. 12/20. ok to tx out of unit Deniz Basurto MD December 19, 2016 10:15
[2016-12-19] MEDS: INSULIN NovoLIN REGULAR SUPPLEMENTAL SCALE SQ SCH ×3 (11:00→21:00)
[2016-12-19] MEDS: INSULIN DETEMIR 100 UNITS/ML VIAL SQ SCH ×2 (11:21→20:57)
[2016-12-19] MEDS: PROCHLORPERAZINE INJ 10 MG/2 ML VIAL IV PUSH PRN (11:27)
--- NOTE | 2016-12-19 12:53 | PD.TRANSFR ---
Transfer Summary Admission Date December 17, 2016 at 13:27 Transfer Date: December 19, 2016 Admitting Diagnosis acute pancreatitis, hyperglycemia, hyperlipidemia Diagnoses: (1) Pancreatitis Diagnosis: Principal (2) Hyperglycemia due to type 1 diabetes mellitus Diagnosis: Principal (3) Hyperlipidemia due to type 1 diabetes mellitus Diagnosis: Principal Significant Findings Elevated triglycerides Transfer Summary/Subjective Patient admitted with recurrent pancreatitis secondary to elevated triglyceride. Treated with insulin drip. Triglycerides currently less than 500. Objective Vital Signs Date Time Temp Pulse Resp B/P Pulse Ox O2 Delivery O2 Flow Rate FiO2 12/19/16 12:00 96 12/19/16 04:00 98.5 30 127/80 93 12/17/16 14:00 Room Air Intake and Output 12/18/16 12/18/16 12/19/16 08:00 16:00 00:00 Intake Total 555 ml 1785 ml 891 ml Output Total 450 ml 860 ml 750 ml Balance 105 ml 925 ml 141 ml Result Diagram: 12/19/16 0339 12/19/16 0339 Imaging Last Impressions Abdomen/Pelvis CT 12/17/16 0000 Signed Impressions: Service Date/Time: Sunday, December 18, 2016 00:51 - CONCLUSION: 1. Findings consistent with acute pancreatitis. Prominent fluid adjacent to the pancreas and tracking into the paracolic gutters and pelvis. 2. Mild hepatic steatosis. Emanuel Dimas MD Objective Remarks GENERAL: 21-year-old male, lying in bed in no acute distress SKIN: Warm and dry. HEAD: Atraumatic. Normocephalic. EYES: Pupils equal and round. No scleral icterus. No injection or drainage. ENT: No nasal bleeding or discharge. Mucous membranes pink and moist. NECK: Trachea midline. No JVD. CARDIOVASCULAR: Regular rate and rhythm. S1, S2 no S4. RESPIRATORY: Clear to auscultation. Breath sounds equal bilaterally. GASTROINTESTINAL: Abdomen soft, tender to palpation epigastric region. Voluntary guarding. No rigidity. MUSCULOSKELETAL: Extremities without significant peripheral edema. No obvious deformities. NEUROLOGICAL: Awake and alert. No obvious cranial nerve deficits. Motor grossly within normal limits. Five out of 5 muscle strength in the arms and legs. Normal speech. PSYCHIATRIC: Appropriate mood and affect; insight and judgment normal. A/P Assessment and Plan Neuro/Psych: Dilaudid 1 mg IV every 2 hours when necessary pain management CV: Hypertriglyceridemia Currently on normal saline at 125 cc an hour. Not requiring antihypertensives and/or vasopressors at this time On gemfibrozil 600 twice a day and Lipitor 20 daily for elevated triglycerides On insulin drip for maintenance of hypertriglyceridemia. Currently 247 this a.m. - will not need plasmapheresis at this time. Recheck in a.m. Resp: Nasal cannula to maintain saturations greater than equal to 92% Incentive spirometry while awake GI: Pancreatitis secondary to hypertriglyceridemia CT abdomen/pelvis 12/17 revealed pancreatic inflammation with fluid pericolic gutters. Lipase 573 today and trending downward. Recheck in a.m. : [place] if indicated for accurate I's and O's in a critically ill patient Endo: Diabetes mellitus Currently on insulin drip. We'll switch to Levemir 5 units twice a day with sliding scale insulin/moderate regimen before meals/at bedtime 0300 On Levemir 14 units at night insulin scale insulin 2 to 15 units as needed with meals at home Renal: Monitor urine output Accurate I's and O's Follow BMP in a.m. Heme: Polycythemia Follow CBC daily. Monitor trends ID: Monitor for infection FEN: Hypokalemia Hypophosphatemia Replace electrolytes as clinically indicated MSK: Obesity Weight loss encouraged Access - Utilize peripheral IV. Central line if indicated Prophylaxis - GI - Protonix - DVT - SCD/heparin subcutaneous Critical Care: The total care time was 35 minutes. Time to perform other separately billable procedures was not included in the critical care time. Patient is stable from a critical care medicine standpoint. We'll assign to hospitalist in a.m. 12/20. ok to tx out of unit Deniz Basurto MD December 19, 2016 12:53
--- NOTE | 2016-12-19 14:34 | HHI.GIFU ---
Subjective Remarks Pt resting in bed. Still having abd pain, nausea and vomiting. (Barbie Baltazar) Objective Vitals I&O Vital Signs Date Time Temp Pulse Resp B/P Pulse Ox O2 Delivery O2 Flow Rate FiO2 12/19/16 12:00 96 12/19/16 10:00 92 12/19/16 08:00 90 12/19/16 06:00 95 12/19/16 04:00 98.5 97 30 127/80 93 12/19/16 04:00 97 12/19/16 03:43 20 12/19/16 02:00 101 12/19/16 00:00 99.1 103 20 109/55 94 12/19/16 00:00 103 12/18/16 22:00 103 12/18/16 20:00 105 12/18/16 20:00 99.7 105 29 140/83 95 12/18/16 18:00 90 12/18/16 16:00 98.5 97 18 128/73 97 12/18/16 16:00 96 I/O 12/18/16 12/18/16 12/18/16 12/19/16 12/19/16 12/19/16 07:00 15:00 23:00 07:00 15:00 23:00 Intake Total 555 ml 1785 ml 891 ml 1242 ml Output Total 450 ml 860 ml 750 ml 640 ml Balance 105 ml 925 ml 141 ml 602 ml Intake Oral 240 ml 240 ml IV Total 555 ml 1785 ml 651 ml 1002 ml Output Urine Total 450 ml 860 ml 750 ml 640 ml Stool Total 0 ml 0 ml 0 ml Laboratory Laboratory Tests Test 12/19/16 03:39 White Blood Count 5.4 Red Blood Count 4.99 Hemoglobin 14.2 Hematocrit 41.6 Mean Corpuscular Volume 83.4 Mean Corpuscular Hemoglobin 28.4 Mean Corpuscular Hemoglobin 34.1 Concent Red Cell Distribution Width 15.4 Platelet Count 196 Mean Platelet Volume 8.5 Neutrophils (%) (Auto) 79.4 Lymphocytes (%) (Auto) 11.2 Monocytes (%) (Auto) 8.8 Eosinophils (%) (Auto) 0.3 Basophils (%) (Auto) 0.3 Neutrophils # (Auto) 4.3 Lymphocytes # (Auto) 0.6 Monocytes # (Auto) 0.5 Eosinophils # (Auto) 0.0 Basophils # (Auto) 0.0 CBC Comment DIFF FINAL Differential Comment Sodium Level 137 Potassium Level 3.4 Chloride Level 103 Carbon Dioxide Level 22.3 Anion Gap 12 Blood Urea Nitrogen 10 Creatinine 0.54 Estimat Glomerular Filtration 231 Rate Random Glucose 195 Calcium Level 8.1 Phosphorus Level 1.7 Magnesium Level 2.0 Total Bilirubin 0.5 Aspartate Amino Transf 11 (AST/SGOT) Alanine Aminotransferase 16 (ALT/SGPT) Alkaline Phosphatase 45 Total Protein 5.9 Albumin 2.1 Triglycerides Level 238 Lipase 597 Date/Time Procedure Status Source Growth 12/17/16 15:10 Aerobic Blood Culture - Preliminary Resulted Blood Peripheral NO GROWTH IN 2 DAYS 12/17/16 15:10 Anaerobic Blood Culture - Preliminary Resulted Blood Peripheral NO GROWTH IN 2 DAYS Imaging Last Impressions Abdomen/Pelvis CT 12/17/16 0000 Signed Impressions: Service Date/Time: Tuesday, December 18, 2016 00:51 - CONCLUSION: 1. Findings consistent with acute pancreatitis. Prominent fluid adjacent to the pancreas and tracking into the paracolic gutters and pelvis. 2. Mild hepatic steatosis. Emanuel Dimas MD Physical Exam HEENT: EOMI; normocephalic; atraumatic; CHEST: Chest is clear to auscultation and percussion. CARDIAC: Regular rate and rhythm with no murmur gallop or rubs. ABDOMEN: Soft, obese, diffuse abdomen pain upon palpation ; no hepatosplenomegaly; bowel sounds are present in all four quadrants. EXTREMITIES: No clubbing, cyanosis, or edema. SKIN: Normal; no rash; no jaundice. SECTION WEAVER: No focal deficits; alert and oriented times three. (Barbie Baltazar [facility]) Assessment and Plan Plan ASSESSMENT - acute pancreatitis, most likely secondary to hypertriglyceridemia. Lipase 4723--->597. Triglycerides 2462---->232. LFTs normal .Drug panel pos for marijuana , he is not a heavy drinker. CT (12/17/16) 1. Findings consistent with acute pancreatitis. Prominent fluid adjacent to the pancreas and tracking into the paracolic gutters and pelvis. 2. Mild hepatic steatosis S/P hematology consult, no need for plasmapheresis, since patient is responding well - Chronic high triglycerides and was on fenofibrate before PLAN: - continue Clear liquids - continue gemfibrozil - aggressive IV fluids - lipase in am - further recommendations based on results of above This pt seen by myself and Dr Hill and this note was written on his behalf ( Barbie Baltazar) Physician Comments Seen and examined with QC ANALYST, feeling somewhat better. Labs improving. Stressed importance of compliance withmeds and abstainence form ETOH. Low fat diet. Discussed with Mom at the bedside. (Wale Hill MD) Barbie Baltazar December 19, 2016 14:34 Wale Hill MD December 19, 2016 16:38
[2016-12-19] MEDS: DOCUSATE SODIUM 100 MG CAP PO SCH (19:21)
[2016-12-20] VITALS (8 sets, daily range): BP systolic 135–164; BP diastolic 76–105; PULSE 79–100; RESP 16–20; TEMP 97.5–99.7; O2SAT 93–96
[2016-12-20] MEDS: PIPERACIL-TAZO 4.5 GM PREMIX 100 ML IV SCH ×4 (03:28→20:48)
[2016-12-20] MEDS: HEPARIN SODIUM - SQ 10,000 UNITS/ML VIAL SQ SCH ×2 (03:28→15:15)
[2016-12-20] MEDS: ONDANSETRON HCL 4 MG/2 ML VIAL IV PUSH PRN ×4 (03:35→22:28)
[2016-12-20] MEDS: HYDROmorphone HCL PF 1 MG/ML VIAL IV PUSH PRN ×8 (03:35→22:28)
[2016-12-20] MEDS: CHLORHEXIDINE GLUCONATE 2 % 1 PACK (2 CLOTHS) TOP SCH (03:38)
[2016-12-20] MEDS: INSULIN NovoLIN REGULAR SUPPLEMENTAL SCALE SQ SCH ×4 (06:06→20:47)
[2016-12-20 06:54] LABS: AUTOMATED NEUTROPHIL # 3.4 TH/MM3 (1.8-7.7); BASOPHIL % 0.3 % (0.0-2.0); EOSINOPHIL # 0.1 TH/MM3 (0-0.4); EOSINOPHIL % 1.3 % (0.0-4.0); HEMATOCRIT 37.1 % (39.0-51.0); HEMO FLAGS DIFF FINAL; LYMPH % 16.9 % (9.0-44.0); LYMPHOCYTE # 0.8 TH/MM3 (1.0-4.8); MEAN CELL VOLUME 84.3 FL (80.0-100.0); MEAN CORPUSCULAR HEMOGLOBIN 26.9 PG (27.0-34.0); MEAN CORPUSCULAR HGB CONC 31.9 % (32.0-36.0); MONO % 8.5 % (0.0-8.0); PLATELET COUNT 178 TH/MM3 (150-450); RED CELL DISTRIBUTION WIDTH 15.1 % (11.6-17.2); WHITE BLOOD COUNT 4.7 TH/MM3 (4.0-11.0)
[2016-12-20] MEDS: SODIUM CHLOR 0.9% 1000 ML INJ 1,000 ML IV SCH ×3 (07:00→22:30)
[2016-12-20 07:24] LABS: ALT (GPT) 14 U/L (12-78); ANION GAP 12 MEQ/L (5-15); AST (GOT) 10 U/L (15-37); BICARBONATE 20.4 MEQ/L (21.0-32.0); BLOOD UREA NITROGEN 7 MG/DL (7-18); CHLORIDE 105 MEQ/L (98-107); GLOMERULAR FILTRATION RATE 317 ML/MIN (>89); MAGNESIUM 1.8 MG/DL (1.5-2.5); POTASSIUM 3.6 MEQ/L (3.5-5.1); SODIUM (NA) 137 MEQ/L (136-145)
[2016-12-20 07:27] LABS: ALKALINE PHOSPHATASE 44 U/L (45-117); TOTAL BILIRUBIN ADULT 0.6 MG/DL (0.2-1.0)
[2016-12-20] MEDS: DOCUSATE SODIUM 100 MG CAP PO SCH ×2 (09:00→20:45)
[2016-12-20] MEDS: PANTOPRAZOLE SODIUM 40 MG VIAL IV SCH (09:32)
[2016-12-20] MEDS: INSULIN DETEMIR 100 UNITS/ML VIAL SQ SCH ×2 (09:32→20:48)
[2016-12-20] MEDS: ATORVASTATIN 20 MG TAB PO SCH (09:32)
[2016-12-20] MEDS: GEMFIBROZIL 600 MG TAB PO SCH ×2 (09:40→15:18)
--- NOTE | 2016-12-20 09:53 | HHI.GIFU ---
Subjective Remarks Resting in bed. Feeling better, although still with intermittent nausea and epigastric pain. Tolerating clear liquids. Low grade fever overnight. (Marlin Rahman) Objective Vitals I&O Vital Signs Date Time Temp Pulse Resp B/P Pulse Ox O2 Delivery O2 Flow Rate FiO2 12/20/16 08:00 97.5 92 20 151/102 96 12/20/16 04:00 99.7 100 17 160/90 94 12/20/16 00:00 98.9 94 16 135/76 95 12/19/16 20:00 97.9 99 17 130/82 95 12/19/16 20:00 97 12/19/16 18:07 86 12/19/16 17:59 104 12/19/16 17:30 99.9 104 18 142/95 94 12/19/16 16:00 98.3 91 20 133/84 94 12/19/16 16:00 94 12/19/16 14:00 95 12/19/16 12:00 96 12/19/16 12:00 98.5 94 21 120/82 94 12/19/16 10:00 92 I/O 12/19/16 12/19/16 12/19/16 12/20/16 12/20/16 12/20/16 06:59 14:59 22:59 06:59 14:59 22:59 Intake Total 1242 ml 1200 ml 480 ml 2647 ml Output Total 640 ml 700 ml Balance 602 ml 500 ml 480 ml 2647 ml Intake Oral 240 ml 480 ml 240 ml IV Total 1002 ml 1200 ml 2407 ml Output Urine Total 640 ml 700 ml Stool Total 0 ml # Voids 3 2 Laboratory Laboratory Tests Test 12/20/16 05:50 White Blood Count 4.7 Red Blood Count 4.40 Hemoglobin 11.8 Hematocrit 37.1 Mean Corpuscular Volume 84.3 Mean Corpuscular Hemoglobin 26.9 Mean Corpuscular Hemoglobin 31.9 Concent Red Cell Distribution Width 15.1 Platelet Count 178 Mean Platelet Volume 8.2 Neutrophils (%) (Auto) 73.0 Lymphocytes (%) (Auto) 16.9 Monocytes (%) (Auto) 8.5 Eosinophils (%) (Auto) 1.3 Basophils (%) (Auto) 0.3 Neutrophils # (Auto) 3.4 Lymphocytes # (Auto) 0.8 Monocytes # (Auto) 0.4 Eosinophils # (Auto) 0.1 Basophils # (Auto) 0.0 CBC Comment DIFF FINAL Differential Comment Sodium Level 137 Potassium Level 3.6 Chloride Level 105 Carbon Dioxide Level 20.4 Anion Gap 12 Blood Urea Nitrogen 7 Creatinine 0.41 Estimat Glomerular Filtration 317 Rate Random Glucose 217 Calcium Level 8.4 Phosphorus Level 1.4 Magnesium Level 1.8 Total Bilirubin 0.6 Aspartate Amino Transf 10 (AST/SGOT) Alanine Aminotransferase 14 (ALT/SGPT) Alkaline Phosphatase 44 Total Protein 5.8 Albumin 2.1 Triglycerides Level 253 Lipase 310 Date/Time Procedure Status Source Growth 12/17/16 15:10 Aerobic Blood Culture - Preliminary Resulted Blood Peripheral NO GROWTH IN 2 DAYS 12/17/16 15:10 Anaerobic Blood Culture - Preliminary Resulted Blood Peripheral NO GROWTH IN 2 DAYS Imaging Last Impressions Abdomen/Pelvis CT 12/17/16 0000 Signed Impressions: Service Date/Time: Sunday, December 18, 2016 00:51 - CONCLUSION: 1. Findings consistent with acute pancreatitis. Prominent fluid adjacent to the pancreas and tracking into the paracolic gutters and pelvis. 2. Mild hepatic steatosis. Emanuel Dimas MD Physical Exam HEENT: Normocephalic; atraumatic; CHEST: CTA CARDIAC: RRR ABDOMEN: Soft, obese, mild epigastric pain; no hepatosplenomegaly; bowel sounds are present in all four quadrants. EXTREMITIES: No clubbing, cyanosis, or edema. SKIN: Normal; no rash; no jaundice. GAS PUMPING STATION HELPER: No focal deficits; alert and oriented times three. (Marlin RahmanP) Assessment and Plan Plan ASSESSMENT - Acute pancreatitis, most likely secondary to hypertriglyceridemia. Abdomen/ Pelvis CT (12/17/16)-----> 1. Findings consistent with acute pancreatitis. Prominent fluid adjacent to the pancreas and tracking into the paracolic gutters and pelvis. 2. Mild hepatic steatosis. One prior history about a year ago, etiology not determined at that time. Pt with significant hypertriglyceridemia on admission at 2462. He was started on Gemfibrozil and this is down to 253. Lipase normalized at 310 today. Tolerating clears. Mild nausea/epigastric pain. Will advance diet. D/W patient importance of low fat diet, avoiding ETOH/ Marijuana, good control of triglycerides. - Severe hypertriglyceridemia. On admission, 2462. On Gemfibrozil, now 253. - DM per primary PLAN: - Full liquids, advance to low fat diet - Continue gemfibrozil - Cont. PPI - Lipase in am - D/W patient importance of Low fat diet, good control of triglycerides, avoiding ETOH/Marijuana - Supportive care - Pt seen and examined by Dr. Vann and myself and this note is written on her behalf (Marlin Rahman) Physician Comments seen, examined agree with above did not tolerate full liquid, we will restart clear liquids (Chloé Vann MD) Marlin Rahman December 20, 2016 09:52 Chloé Vann MD December 20, 2016 21:47
--- NOTE | 2016-12-20 10:08 | HHI.PR ---
Subjective Remarks Follow up pancreatitis, diabetes, hypertriglyceridemia. The patient states that he is still having in his upper abdomen. Had an episode of vomiting last night. No nausea this morning. Objective Vitals Vital Signs Date Time Temp Pulse Resp B/P Pulse Ox O2 Delivery O2 Flow Rate FiO2 12/20/16 08:00 97.5 92 20 151/102 96 12/20/16 04:00 99.7 100 17 160/90 94 12/20/16 00:00 98.9 94 16 135/76 95 12/19/16 20:00 97.9 99 17 130/82 95 12/19/16 20:00 97 12/19/16 18:07 86 12/19/16 17:59 104 12/19/16 17:30 99.9 104 18 142/95 94 12/19/16 16:00 98.3 91 20 133/84 94 12/19/16 16:00 94 12/19/16 14:00 95 12/19/16 12:00 96 12/19/16 12:00 98.5 94 21 120/82 94 I/O 12/19/16 12/19/16 12/19/16 12/20/16 12/20/16 12/20/16 06:59 14:59 22:59 06:59 14:59 22:59 Intake Total 1242 ml 1200 ml 480 ml 2647 ml Output Total 640 ml 700 ml Balance 602 ml 500 ml 480 ml 2647 ml Intake Oral 240 ml 480 ml 240 ml IV Total 1002 ml 1200 ml 2407 ml Output Urine Total 640 ml 700 ml Stool Total 0 ml # Voids 3 2 Result Diagram: 12/20/16 0550 12/20/16 0550 Imaging Last Impressions Abdomen/Pelvis CT 12/17/16 0000 Signed Impressions: Service Date/Time: Sunday, December 18, 2016 00:51 - CONCLUSION: 1. Findings consistent with acute pancreatitis. Prominent fluid adjacent to the pancreas and tracking into the paracolic gutters and pelvis. 2. Mild hepatic steatosis. Emanuel Dimas MD Objective Remarks General: No acute distress. Heart: Regular rate and rhythm. No murmur. Lungs: Clear to auscultation bilaterally. No wheezes, rales, or rhonchi. Breathing is nonlabored. Abdomen: Soft, tender to palpation in the upper abdomen, nondistended. Extremities: No lower extremity edema. Psych: Alert and oriented. Procedures None Urinary Catheter: No Vascular Central Line Catheter: No A/P Problem List: (1) Pancreatitis ICD Code: K85.90 Status: Acute (2) Hyperglycemia due to type 1 diabetes mellitus ICD Code: E10.65 Status: Acute (3) Hypertriglyceridemia ICD Code: E78.1 Status: Acute (4) Hypokalemia ICD Code: E87.6 Status: Resolved Assessment and Plan 1. Acute pancreatitis secondary to hypertriglyceridemia: Appreciate gastroenterology recommendations. Continue pain control. Advance to full liquid diet. May be able to advanced to heart healthy diet this evening. Discussed with GI. 2. Hypertriglyceridemia: Continue gemfibrozil, Lipitor. Triglyceride level is improving. 3. Diabetes mellitus, type I: Continue Levemir. Monitor Accu-Cheks and cover with sliding scale insulin. 4. Hypokalemia: Resolved. 5. GI prophylaxis: Protonix. 6. DVT prophylaxis: SCDs, subcutaneous heparin. Discharge Planning Possible discharge home tomorrow if patient tolerates advancing diet. Shahzad Bright MD December 20, 2016 10:08
[2016-12-20] MEDS ORDERED: ENALAPRILAT 1.25 MG/ML VIAL IV PUSH PRN (18:00)
[2016-12-21 00:55] VITALS: BP 155/94; PULSE 78; RESP 16; TEMP 97.5; O2SAT 96
[2016-12-21] MEDS: HYDROmorphone HCL PF 1 MG/ML VIAL IV PUSH PRN ×9 (01:04→22:35)
[2016-12-21] MEDS: CHLORHEXIDINE GLUCONATE 2 % 1 PACK (2 CLOTHS) TOP SCH (03:57)
[2016-12-21 04:00] VITALS: BP 154/100; PULSE 81; RESP 18; TEMP 98.3; O2SAT 95
[2016-12-21] MEDS: PIPERACIL-TAZO 4.5 GM PREMIX 100 ML IV SCH ×4 (04:00→22:34)
[2016-12-21] MEDS: HEPARIN SODIUM - SQ 10,000 UNITS/ML VIAL SQ SCH ×2 (04:00→13:52)
[2016-12-21] MEDS: ONDANSETRON HCL 4 MG/2 ML VIAL IV PUSH PRN ×4 (04:01→19:18)
[2016-12-21] MEDS: INSULIN NovoLIN REGULAR SUPPLEMENTAL SCALE SQ SCH ×4 (06:20→22:37)
[2016-12-21 08:00] VITALS: BP 143/90; PULSE 65; RESP 18; TEMP 98.2; O2SAT 97
[2016-12-21] MEDS: DOCUSATE SODIUM 100 MG CAP PO SCH ×2 (09:00→21:00)
[2016-12-21] MEDS: PANTOPRAZOLE SOD 40 MG DELAYED RELEASE TAB PO SCH (09:04)
[2016-12-21] MEDS: GEMFIBROZIL 600 MG TAB PO SCH ×2 (09:04→17:12)
[2016-12-21] MEDS: amLODIPine BESYLATE 5 MG TAB PO SCH (09:04)
[2016-12-21] MEDS: ATORVASTATIN 20 MG TAB PO SCH (09:05)
[2016-12-21] MEDS: SODIUM CHLOR 0.9% 1000 ML INJ 1,000 ML IV SCH ×2 (09:13→15:00)
[2016-12-21] MEDS: INSULIN DETEMIR 100 UNITS/ML VIAL SQ SCH ×2 (09:23→22:36)
--- NOTE | 2016-12-21 10:51 | HHI.PR ---
Subjective Remarks Follow-up pancreatitis. Patient still having midepigastric abdominal pain. Did not tolerate full liquid diet yesterday and was changed back to clear liquid diet. He is requesting to have his diet advanced again today. Objective Vitals Vital Signs Date Time Temp Pulse Resp B/P Pulse Ox O2 Delivery O2 Flow Rate FiO2 12/21/16 08:00 98.2 65 18 143/90 97 12/21/16 04:00 98.3 81 18 154/100 95 12/21/16 00:55 97.5 78 16 155/94 96 12/20/16 21:00 98.9 80 18 164/103 96 12/20/16 20:00 84 12/20/16 16:00 98.3 79 20 157/86 93 12/20/16 12:28 159/79 12/20/16 12:00 98.2 87 20 162/105 95 I/O 12/20/16 12/20/16 12/20/16 12/21/16 12/21/16 12/21/16 07:00 15:00 23:00 07:00 15:00 23:00 Intake Total 2647 ml 1448 ml 720 ml 240 ml Balance 2647 ml 1448 ml 720 ml 240 ml Intake Oral 240 ml 600 ml 720 ml 240 ml IV Total 2407 ml 848 ml # Voids 2 3 2 2 # Bowel Movements 1 2 Result Diagram: 12/20/16 0550 12/20/16 0550 Imaging Last Impressions Abdomen/Pelvis CT 12/17/16 0000 Signed Impressions: Service Date/Time: Sunday, December 18, 2016 00:51 - CONCLUSION: 1. Findings consistent with acute pancreatitis. Prominent fluid adjacent to the pancreas and tracking into the paracolic gutters and pelvis. 2. Mild hepatic steatosis. Emanuel Dimas MD Objective Remarks General: No acute distress. Heart: Regular rate and rhythm. No murmur. Lungs: Clear to auscultation bilaterally. No wheezes, rales, or rhonchi. Breathing is nonlabored. Abdomen: Soft, tender to palpation in the midepigastric region, nondistended. Extremities: No lower extremity edema. Psych: Alert and oriented. Procedures None Urinary Catheter: No Vascular Central Line Catheter: No A/P Problem List: (1) Pancreatitis ICD Code: K85.90 Status: Acute (2) Hyperglycemia due to type 1 diabetes mellitus ICD Code: E10.65 Status: Acute (3) Hypertriglyceridemia ICD Code: E78.1 Status: Acute (4) Hypokalemia ICD Code: E87.6 Status: Resolved Assessment and Plan 1. Acute pancreatitis secondary to hypertriglyceridemia: Appreciate gastroenterology recommendations. Continue pain control. Did not tolerate full liquid diet yesterday, but is requesting to have diet advanced again today. We' ll advance to full liquid diet. 2. Hypertriglyceridemia: Continue gemfibrozil, Lipitor. Triglyceride level is improving. Recheck in the morning. 3. Diabetes mellitus, type I: Continue Levemir. Monitor Accu-Cheks and cover with sliding scale insulin. 4. Hypokalemia: Resolved. 5. GI prophylaxis: Protonix. 6. DVT prophylaxis: SCDs, subcutaneous heparin. Discharge Planning Plan for discharge when cleared by gastroenterology. Shahzad Bright MD December 21, 2016 10:51
[2016-12-21 13:30] VITALS: BP 145/97; PULSE 77; RESP 20; TEMP 97.1; O2SAT 96
--- NOTE | 2016-12-21 15:03 | HHI.GIFU ---
Subjective Remarks Pt sitting up in bed, visiting with family. He still has some LUQ burning pain but says it is much improved. NV improved also. He is still eating clears although his diet has been advanced, he's afraid to eat more. (Barbie Baltazar) Objective Vitals I&O Vital Signs Date Time Temp Pulse Resp B/P Pulse Ox O2 Delivery O2 Flow Rate FiO2 12/21/16 13:30 97.1 77 20 145/97 96 12/21/16 12:14 16 12/21/16 08:00 98.2 65 18 143/90 97 12/21/16 04:00 98.3 81 18 154/100 95 12/21/16 00:55 97.5 78 16 155/94 96 12/20/16 21:00 98.9 80 18 164/103 96 12/20/16 20:00 84 12/20/16 16:00 98.3 79 20 157/86 93 I/O 12/20/16 12/20/16 12/20/16 12/21/16 12/21/16 12/21/16 06:59 14:59 22:59 06:59 14:59 22:59 Intake Total 2647 ml 1448 ml 720 ml 240 ml Balance 2647 ml 1448 ml 720 ml 240 ml Intake Oral 240 ml 600 ml 720 ml 240 ml IV Total 2407 ml 848 ml # Voids 2 3 2 2 # Bowel Movements 1 2 Laboratory Laboratory Tests Test 12/21/16 06:34 Lipase 554 Date/Time Procedure Status Source Growth 12/17/16 15:10 Aerobic Blood Culture - Preliminary Resulted Blood Peripheral NO GROWTH IN 4 DAYS 12/17/16 15:10 Anaerobic Blood Culture - Preliminary Resulted Blood Peripheral NO GROWTH IN 4 DAYS Imaging Last Impressions Abdomen/Pelvis CT 12/17/16 0000 Signed Impressions: Service Date/Time: Sunday, December 18, 2016 00:51 - CONCLUSION: 1. Findings consistent with acute pancreatitis. Prominent fluid adjacent to the pancreas and tracking into the paracolic gutters and pelvis. 2. Mild hepatic steatosis. Emanuel Dimas MD Physical Exam HEENT: Normocephalic; atraumatic; CHEST: CTA CARDIAC: RRR ABDOMEN: Soft, obese, mild LUQ TTP; no hepatosplenomegaly; bowel sounds are present in all four quadrants. EXTREMITIES: No clubbing, cyanosis, or edema. SKIN: Normal; no rash; no jaundice. CLINICAL TRIALS SYSTEMS ADMINISTRATOR: No focal deficits; alert and oriented times three. (Barbie Baltazar) Assessment and Plan Plan ASSESSMENT - Acute pancreatitis, most likely secondary to hypertriglyceridemia. Abdomen/ Pelvis CT (12/17/16)-----> 1. Findings consistent with acute pancreatitis. Prominent fluid adjacent to the pancreas and tracking into the paracolic gutters and pelvis. 2. Mild hepatic steatosis. One prior history about a year ago, etiology not determined at that time. Pt with significant hypertriglyceridemia on admission at 2462. He was started on Gemfibrozil and this is down to 253. Lipase 554 today up from yesterday- his diet was advanced but he did not tolerate and is still on clears. Mild nausea/epigastric pain. Diet has been advanced 2nd time and pt still only wanting clears. D/W patient importance of low fat diet, avoiding ETOH/Marijuana, good control of triglycerides. - Severe hypertriglyceridemia. On admission, 2462. On Gemfibrozil, now 253. - DM per primary PLAN: - Full liquids - Continue gemfibrozil - Cont. PPI - Lipase in am - D/W patient importance of Low fat diet, good control of triglycerides, avoiding ETOH/Marijuana - Supportive care - Pt seen and examined by Dr. Vann and myself and this note is written on her behalf (Barbie Baltazar) Barbie Baltazar December 21, 2016 15:03 Chloé Vann MD January 01, 2017 09:56
[2016-12-21 16:00] VITALS: BP 136/85; PULSE 69; RESP 20; TEMP 99.7; O2SAT 96
[2016-12-21 20:00] VITALS: BP 149/95; PULSE 74; PULSE 79; RESP 18; TEMP 97.4; O2SAT 96
[2016-12-22] VITALS (10 sets, daily range): BP systolic 145–175; BP diastolic 80–109; PULSE 60–75; RESP 17–20; TEMP 97.3–99.7; O2SAT 95–99
[2016-12-22] MEDS: ONDANSETRON HCL 4 MG/2 ML VIAL IV PUSH PRN ×3 (00:54→16:36)
[2016-12-22] MEDS: HYDROmorphone HCL PF 1 MG/ML VIAL IV PUSH PRN ×6 (00:55→16:20)
[2016-12-22] MEDS: CHLORHEXIDINE GLUCONATE 2 % 1 PACK (2 CLOTHS) TOP SCH (03:15)
[2016-12-22] MEDS: HEPARIN SODIUM - SQ 10,000 UNITS/ML VIAL SQ SCH ×2 (03:57→13:41)
[2016-12-22] MEDS: PIPERACIL-TAZO 4.5 GM PREMIX 100 ML IV SCH ×2 (03:57→08:58)
[2016-12-22] MEDS: INSULIN NovoLIN REGULAR SUPPLEMENTAL SCALE SQ SCH ×4 (06:37→21:28)
[2016-12-22] MEDS: DOCUSATE SODIUM 100 MG CAP PO SCH ×2 (08:40→21:00)
[2016-12-22] MEDS: amLODIPine BESYLATE 5 MG TAB PO SCH (08:40)
[2016-12-22] MEDS: ATORVASTATIN 20 MG TAB PO SCH (08:40)
[2016-12-22] MEDS: GEMFIBROZIL 600 MG TAB PO SCH ×2 (08:40→16:34)
[2016-12-22] MEDS: PANTOPRAZOLE SOD 40 MG DELAYED RELEASE TAB PO SCH (08:42)
[2016-12-22] MEDS: INSULIN DETEMIR 100 UNITS/ML VIAL SQ SCH ×2 (08:44→21:27)
[2016-12-22] MEDS: SODIUM CHLOR 0.9% 1000 ML INJ 1,000 ML IV SCH ×4 (08:49→21:30)
--- NOTE | 2016-12-22 11:27 | HHI.PR ---
Subjective Remarks Follow-up for pancreatitis Patient stated that he did have nausea after eating yesterday. He stated that he thinks is a type of food she's eating. Patient asking to advance diet. He continues to abdominal pain but it has been stable. Patient remains afebrile. Patient's aunt and mother is at the bedside. Patient also asking if I can get hemoglobin A1c. He stated that his last hemoglobin A1c was more than 3 months ago. Objective Vitals Vital Signs Date Time Temp Pulse Resp B/P Pulse Ox O2 Delivery O2 Flow Rate FiO2 12/22/16 07:50 97.6 60 20 152/99 97 12/22/16 07:10 16 12/22/16 04:00 97.5 63 17 152/80 95 12/22/16 00:00 98.0 71 18 158/92 96 12/21/16 20:00 97.4 79 18 149/95 96 12/21/16 20:00 74 12/21/16 16:00 99.7 69 20 136/85 96 12/21/16 13:30 97.1 77 20 145/97 96 I/O 12/21/16 12/21/16 12/21/16 12/22/16 12/22/16 12/22/16 07:00 15:00 23:00 07:00 15:00 23:00 Intake Total 240 ml 980 ml Balance 240 ml 980 ml Intake Oral 240 ml IV Total 980 ml # Voids 2 1 # Bowel Movements 2 Result Diagram: 12/20/16 0550 12/20/16 0550 Objective Remarks General: No acute distress. Heart: Regular rate and rhythm. No murmur. Lungs: Clear to auscultation bilaterally. No wheezes, rales, or rhonchi. Breathing is nonlabored. Abdomen: Soft, tender to palpation in the midepigastric region, nondistended. Extremities: No lower extremity edema. Psych: Alert and oriented. Procedures None Medications and IVs Current Medications Ondansetron HCl (Zofran Inj) 4 mg STK-MED ONCE .ROUTE ; Start 12/17/16 at 11:29; Stop 12/17/16 at 11:30; Status DC Morphine Sulfate (Morphine Inj) 4 mg ONCE ONCE IV Last administered on t 11:36; Start 12/17/16 at 11:30; Stop 12/17/16 at 11:32; Status DC Ondansetron HCl 4 mg 4 mg ONCE ONCE IVP Last administered on 12/17/16 11:36; Start 12/17/16 at 11:30; Stop 12/17/16 at 11:32; Status DC Sodium Chloride 1,000 ml @ 250 mls/hr Q4H IV ; Start 12/17/16 at 13:05; Stop 12/17/16 at 13:47; Status DC Dextrose/Sodium Chloride (D5W-NS 1000 ml Inj) 1,000 ml @ 200 mls/hr Q5H IV ; Start 12/17/16 at 13:05; Stop 12/17/16 at 13:47; Status DC Insulin Human Regular 12 units 12 units BOLUS ONCE IV PUSH Last administered on 12/17/16 13:25; Start 12/17/16 at 13:15; Stop 12/17/16 at 13:16; Status DC Insulin Human Regular 100 units/ Sodium Chloride 100 ml @ 0 mls/hr TITRATE IV ; Start 12/17/16 at 13:15; Stop 12/17/16 at 13:47; Status DC Potassium Chloride 100 ml @ 100 mls/hr Q1H PRN IV SEE LABEL COMMENTS; Start at 13:15; Stop 12/17/16 at 13:48; Status DC Potassium Chloride 100 ml @ 50 mls/hr Q2H PRN IV SEE LABEL COMMENTS; Start 12/17/16 at 13:15; Stop 12/17/16 at 13:48; Status DC Potassium Chloride 100 ml @ 100 mls/hr Q1H PRN IV SEE LABEL COMMENTS; Start at 13:15; Stop 12/17/16 at 13:48; Status DC Potassium Chloride 100 ml @ 100 mls/hr Q1H PRN IV SEE LABEL COMMENTS; Start at 13:15; Stop 12/17/16 at 13:48; Status DC Potassium Chloride 100 ml @ 50 mls/hr Q2H PRN IV SEE LABEL COMMENTS; Start 12/17/16 at 13:15; Stop 12/17/16 at 13:48; Status DC Potassium Chloride 100 ml @ 50 mls/hr Q2H PRN IV SEE LABEL COMMENTS; Start 12/17/16 at 13:15; Stop 12/17/16 at 13:48; Status DC Potassium Chloride 100 ml @ 50 mls/hr Q2H PRN IV SEE LABEL COMMENTS; Start 12/17/16 at 13:15; Stop 12/17/16 at 13:48; Status DC Potassium Chloride (KCl 20 Meq Premix Inj) 100 ml @ 50 mls/hr Q2H PRN IV SEE LABEL COMMENTS; Start 12/17/16 at 13:15; Stop 12/17/16 at 13:49; Status DC Sodium Bicarbonate (Sodium Bicarbonate 8.4% Inj) 100 meq UNSCH PRN IV SEE LABEL COMMENTS; Start 12/17/16 at 13:15; Stop 12/17/16 at 13:49; Status DC Sodium Bicarbonate 50 meq 50 meq UNSCH PRN IV SEE LABEL COMMENTS; Start at 13:15; Stop 12/17/16 at 13:49; Status DC Sodium Phosphate/ Sodium Chloride (Sodium Phosphate Inj/NS Inj) 105 ml @ 25 mls /hr UNSCH PRN IV SEE LABEL COMMENTS; Start 12/17/16 at 13:15; Stop 12/17/16 at 13 :49; Status DC Hydromorphone HCl (Dilaudid) 2 mg ONCE ONCE PO ; Start 12/17/16 at 13:15; Stop 12/17/16 at 13:21; Status DC Hydromorphone HCl (Dilaudid Pf Inj) 2 mg ONCE ONCE IVS Last administered on 13:39; Start 12/17/16 at 13:30; Stop 12/17/16 at 13:31; Status DC Pantoprazole Sodium (Protonix Inj) 40 mg DAILY IV Last administered on 09:32; Start 12/17/16 at 15:00; Stop 12/20/16 at 09:54; Status DC Albuterol/ Ipratropium (Duoneb Neb) 1 ampule Q4HR NEB PRN INH WHEEZING; Start 12/17/16 at 14:30 Heparin Sodium (Porcine) (Heparin Inj) 5,000 units Q12H SQ Last administered on 12/22/16 03:57; Start 12/17/16 at 15:00 Miscellaneous Information 1 Q361D XX Last administered on 12/17/16 14:30; Start 12/17/16 at 14:30 Chlorhexidine Gluconate (Chlorhexidine 2% Cloth) 3 pack Taper DAILY@04 TOP Last administered on 12/20/16 03:38; Start 12/18/16 at 04:00; Stop 12/14/17 at 03: 59 Chlorhexidine Gluconate (Chlorhexidine 2% Cloth) 3 pack UNSCH PRN TOP HYGIENIC CARE; Start 12/17/16 at 14:30 Dextrose (D50w (Vial) Inj) 25 ml UNSCH PRN IV PUSH HYPOGLYCEMIA-SEE COMMENTS; Start 12/17/16 at 14:30; Stop 12/17/16 at 17:24; Status DC Glucagon (Glucagon Inj) 1 mg UNSCH PRN OTHER HYPOGLYCEMIA-SEE COMMENTS; Start 12/17/16 at 14:30; Stop 12/17/16 at 17:24; Status DC Insulin Human Regular 1 1 Q4H SQ Last administered on 12/17/16 15:26; Start 12/17/16 at 15:00; Stop 12/17/16 at 17:21; Status DC Sodium Chloride 1,000 ml @ 125 mls/hr Q8H IV Last administered on 12/22/16 08 :49; Start 12/17/16 at 15:00 Piperacillin Sod/ Tazobactam Sod 100 ml @ 200 mls/hr Q6H IV Last administered on 12/22/16 08:58; Start 12/17/16 at 16:00 Sodium Chloride 1,000 ml @ 125 mls/hr Q8H IV ; Start 12/17/16 at 14:45; Stop 12/17/16 at 14:47; Status DC Sodium Chloride (NS 1000 ml Inj) 1,000 ml @ 999 mls/hr BOLUS ONCE IV Last administered on 12/17/16 15:19; Start 12/17/16 at 14:45; Stop 12/17/16 at 15:45; Status DC Diatrizoate Meglum/ Diatrizoate Sod ( Gastroview Liq) 18 ml ONCE ONCE PO Last administered on 12/17/16 16:51; Start 12/17/16 at 15:00; Stop 12/17/16 at 15: 01; Status DC Atorvastatin Calcium (Lipitor) 20 mg DAILY PO Last administered on 12/22/16 08 :40; Start 12/17/16 at 17:15 Ondansetron HCl (Zofran Inj) 4 mg Q8H PRN IV PUSH NAUSEA OR VOMITING Last administered on 12/18/16 01:30; Start 12/17/16 at 17:15; Stop 12/18/16 at 06:51; Status DC Hydromorphone HCl 1 mg 1 mg Q4H PRN IV PUSH PAIN 1-10 Last administered on 09:37; Start 12/17/16 at 17:15; Stop 12/18/16 at 10:40; Status DC Insulin Human Regular/Sodium Chloride (NovoLIN R (IV INFUSION)/NS Inj) 100 ml @ 0 mls/hr TITRATE IV Last administered on 12/18/16 22:11; Start 12/17/16 at 17:30 ; Stop 12/19/16 at 09:26; Status DC Dextrose (D50w (Vial) Inj) 25 ml UNSCH PRN IV PUSH SEE LABEL COMMENTS; Start at 17:30; Stop 12/19/16 at 09:26; Status DC Miscellaneous Information 1 ONCE ONCE XX Last administered on 12/17/16 17:30; Start 12/17/16 at 17:30; Stop 12/17/16 at 17:31; Status DC Hydralazine HCl (Apresoline Inj) 10 mg Q6H PRN IV PUSH SYS BP GREATER THAN 160 MMHG Last administered on 12/17/16 17:53; Start 12/17/16 at 17:30 Iohexol (Omnipaque 350 Inj) 100 ml STK-MED ONCE IV Last administered on 01:17; Start 12/18/16 at 01:17; Stop 12/18/16 at 01:18; Status DC Ondansetron HCl 4 mg 4 mg Q6H PRN IV PUSH NAUSEA OR VOMITING Last administered on 12/18/16 09:37; Start 12/18/16 at 06:51; Stop 12/18/16 at 10:40; Status DC Sodium Chloride (NS 1000 ml Inj) 1,000 ml @ 999 mls/hr Q1H1M IV Last administered on 12/18/16 08:01; Start 12/18/16 at 07:00; Stop 12/18/16 at 09:00; Status DC Hydromorphone HCl (Dilaudid Pf Inj) 1 mg Q2HR PRN IV PUSH PAIN 1-10 Last administered on 12/22/16 08:57; Start 12/18/16 at 12:00 Ondansetron HCl (Zofran Inj) 4 mg Q4HR PRN IV PUSH NAUSEA OR VOMITING Last administered on 12/22/16 06:36; Start 12/18/16 at 12:00 Prochlorperazine Edisylate 5 mg 5 mg Q6H PRN IV PUSH nausea Last administered on 12/19/16 11:27; Start 12/18/16 at 11:00 Magnesium Sulfate/ Dextrose 100 ml @ 100 mls/hr Q1H IV Last administered on 15:40; Start 12/18/16 at 12:00; Stop 12/18/16 at 13:59; Status DC Sodium Phosphate/ Sodium Chloride (Sodium Phosphate Inj/NS Inj) 155 ml @ 38.75 mls/ hr ONCE ONCE IV Last administered on 12/18/16 15:40; Start 12/18/16 at 12: 00; Stop 12/18/16 at 15:59; Status DC Gemfibrozil 600 mg 600 mg BIDAC PO Last administered on 12/22/16 08:40; Start 12/18/16 at 16:00 Sodium Phosphate/ Sodium Chloride (Sodium Phosphate Inj/NS 250 ml Inj) 260 ml @ 43.333 mls/ hr ONCE ONCE IV Last administered on 12/19/16 08:00; Start at 06:45; Stop 12/19/16 at 12:44; Status DC Potassium Chloride (KCl) 40 meq ONCE ONCE PO Last administered on 12/19/16 06: 52; Start 12/19/16 at 06:45; Stop 12/19/16 at 06:47; Status DC Insulin Detemir (Levemir Inj) 5 units Q12HR SQ Last administered on 12/22/16 08:44; Start 12/19/16 at 10:00 Dextrose (D50w (Vial) Inj) 25 ml UNSCH PRN IV PUSH HYPOGLYCEMIA-SEE COMMENTS; Start 12/19/16 at 09:30 Glucagon (Glucagon Inj) 1 mg UNSCH PRN OTHER HYPOGLYCEMIA-SEE COMMENTS; Start 12/19/16 at 09:30 Insulin Human Regular (NovoLIN R SUPPLEMENTAL SCALE) 1 ACHS SLIDING SCALE SQ Last administered on 12/22/16 06:37; Start 12/19/16 at 11:00 Docusate Sodium (Colace) 100 mg BID PO Last administered on 12/22/16 08:40; Start 12/19/16 at 21:00 Pantoprazole Sodium (Protonix) 40 mg DAILY PO Last administered on 12/22/16 08 :42; Start 12/21/16 at 09:00 Enalaprilat (Vasotec Inj) 1.25 mg Q6H PRN IV PUSH BLOOD PRESSURE > 180/100; Start 12/20/16 at 18:00 Amlodipine Besylate (Norvasc) 5 mg DAILY PO Last administered on 12/22/16 08: 40; Start 12/21/16 at 09:00 A/P Problem List: (1) Pancreatitis ICD Code: K85.90 Status: Acute (2) Hyperglycemia due to type 1 diabetes mellitus ICD Code: E10.65 Status: Acute (3) Hypertriglyceridemia ICD Code: E78.1 Status: Acute (4) Hypokalemia ICD Code: E87.6 Status: Resolved Assessment and Plan 1. Acute pancreatitis secondary to hypertriglyceridemia - Appreciate gastroenterology recommendations. Continue pain control. -Patient thinks that unable to take by mouth due to the type of food. Will advance to soft. Patient told he's not able to tolerate a soft diet will need to go back to full liquid diet. 2. Hypertriglyceridemia: -Continue gemfibrozil, Lipitor. Triglyceride level is improving. 3. Diabetes mellitus, type I: - Continue Levemir. Monitor Accu-Cheks and cover with sliding scale insulin. -Repeat hemoglobin A1c. 4. Hypokalemia: Resolved. 5. GI prophylaxis: Protonix. 6. DVT prophylaxis: SCDs, subcutaneous heparin. Discharge Planning Unable to tolerate by mouth intake so will require continued hospitalization. Elodia Sahu MD December 22, 2016 11:26
--- NOTE | 2016-12-22 12:08 | HHI.GIFU ---
Subjective Remarks Pt resting in bed, visiting with mother. He said he has been ok with soft diet , does have some epigastric burning when eating but it goes away after few minutes. He was nauseous last night but did not vomit and feels ok now. ( Barbie Baltazar) Objective Vitals I&O Vital Signs Date Time Temp Pulse Resp B/P Pulse Ox O2 Delivery O2 Flow Rate FiO2 12/22/16 09:35 18 12/22/16 07:50 97.6 60 20 152/99 97 12/22/16 04:00 97.5 63 17 152/80 95 12/22/16 00:00 98.0 71 18 158/92 96 12/21/16 20:00 97.4 79 18 149/95 96 12/21/16 20:00 74 12/21/16 16:00 99.7 69 20 136/85 96 12/21/16 13:30 97.1 77 20 145/97 96 I/O 12/21/16 12/21/16 12/21/16 12/22/16 12/22/16 12/22/16 07:00 15:00 23:00 07:00 15:00 23:00 Intake Total 240 ml 980 ml Balance 240 ml 980 ml Intake Oral 240 ml IV Total 980 ml # Voids 2 1 # Bowel Movements 2 Laboratory Laboratory Tests Test 12/22/16 07:30 Triglycerides Level 182 Lipase 480 Date/Time Procedure Status Source Growth 12/17/16 15:10 Aerobic Blood Culture - Final Complete Blood Peripheral NO GROWTH IN 5 DAYS 12/17/16 15:10 Anaerobic Blood Culture - Final Complete Blood Peripheral NO GROWTH IN 5 DAYS Imaging Last Impressions Abdomen/Pelvis CT 12/17/16 0000 Signed Impressions: Service Date/Time: Sunday, December 18, 2016 00:51 - CONCLUSION: 1. Findings consistent with acute pancreatitis. Prominent fluid adjacent to the pancreas and tracking into the paracolic gutters and pelvis. 2. Mild hepatic steatosis. Emanuel Dimas MD Physical Exam HEENT: Normocephalic; atraumatic; CHEST: CTA CARDIAC: RRR ABDOMEN: Soft, obese, epigastric TTP, RUQ TTP; no hepatosplenomegaly; bowel sounds are present in all four quadrants. EXTREMITIES: No clubbing, cyanosis, or edema. SKIN: Normal; no rash; no jaundice. HEAD OF SALES PROMOTION: No focal deficits; alert and oriented times three. (Barbie Baltazar) Assessment and Plan Plan ASSESSMENT - Acute pancreatitis, most likely secondary to hypertriglyceridemia. Abdomen/ Pelvis CT (12/17/16)-----> 1. Findings consistent with acute pancreatitis. Prominent fluid adjacent to the pancreas and tracking into the paracolic gutters and pelvis. 2. Mild hepatic steatosis. One prior history about a year ago, etiology not determined at that time. Pt with significant hypertriglyceridemia on admission at 2462. Lipase 480 today - his diet was advanced to soft and he seems to be tolerating. Mild nausea/ epigastric pain. D/W patient importance of low fat diet, avoiding ETOH/Marijuana, good control of triglycerides. - Severe hypertriglyceridemia. On admission, 2462. On Gemfibrozil, now 182. - DM per primary PLAN: - BUCK - Continue gemfibrozil - Cont. PPI - Lipase in am - D/W patient importance of Low fat diet, good control of triglycerides, avoiding ETOH/Marijuana - Supportive care - Pt seen and examined by Dr. Vann and myself and this note is written on her behalf (Barbie Baltazar) Barbie Baltazar December 22, 2016 12:08 Chloé Vann MD January 01, 2017 09:56
[2016-12-22 16:30] LABS: HEMOGLOBIN A1a 1.2 %; HEMOGLOBIN Ao 75.6 %; HEMOGLOBIN F 2.6 %; HEMOGLOBIN P3 4.5 %
[2016-12-22] MEDS ORDERED: ACETAMINOPHEN/HYDROcodone 325 MG/5 MG TAB PO PRN ×2 (16:30)
[2016-12-22] MEDS: PROCHLORPERAZINE INJ 10 MG/2 ML VIAL IV PUSH PRN (21:30)
[2016-12-23] VITALS (8 sets, daily range): BP systolic 145–171; BP diastolic 54–99; PULSE 61–82; RESP 17–20; TEMP 97.3–100.6; O2SAT 94–98
[2016-12-23] MEDS: hydrALAZINE HCL 20 MG/ML VIAL IV PUSH PRN (01:37)
[2016-12-23] MEDS: HEPARIN SODIUM - SQ 10,000 UNITS/ML VIAL SQ SCH ×2 (01:38→13:15)
[2016-12-23] MEDS: CHLORHEXIDINE GLUCONATE 2 % 1 PACK (2 CLOTHS) TOP SCH (01:42)
[2016-12-23] MEDS: GEMFIBROZIL 600 MG TAB PO SCH ×2 (05:35→16:10)
[2016-12-23] MEDS: INSULIN NovoLIN REGULAR SUPPLEMENTAL SCALE SQ SCH ×4 (05:42→21:49)
[2016-12-23] MEDS: SODIUM CHLOR 0.9% 1000 ML INJ 1,000 ML IV SCH ×3 (07:00→23:49)
[2016-12-23] MEDS: HYDROmorphone HCL PF 1 MG/ML VIAL IV PUSH PRN ×4 (08:02→23:53)
[2016-12-23] MEDS: DOCUSATE SODIUM 100 MG CAP PO SCH ×2 (08:02→21:27)
[2016-12-23] MEDS: ATORVASTATIN 20 MG TAB PO SCH (08:03)
[2016-12-23] MEDS: INSULIN DETEMIR 100 UNITS/ML VIAL SQ SCH ×2 (08:05→21:42)
[2016-12-23] MEDS: amLODIPine BESYLATE 5 MG TAB PO SCH ×2 (08:09→13:14)
[2016-12-23] MEDS: PANTOPRAZOLE SOD 40 MG DELAYED RELEASE TAB PO SCH ×2 (08:09→21:26)
[2016-12-23] MEDS: ONDANSETRON HCL 4 MG/2 ML VIAL IV PUSH PRN ×3 (08:09→23:48)
[2016-12-23] MEDS ORDERED: ACETAMINOPHEN 325 MG TAB PO PRN (09:30)
[2016-12-23 10:41] LABS: AUTOMATED NEUTROPHIL # 4.2 TH/MM3 (1.8-7.7); BASOPHIL % 0.8 % (0.0-2.0); EOSINOPHIL # 0.1 TH/MM3 (0-0.4); EOSINOPHIL % 1.1 % (0.0-4.0); HEMATOCRIT 38.2 % (39.0-51.0); HEMO FLAGS DIFF FINAL; LYMPH % 16.9 % (9.0-44.0); MEAN CELL VOLUME 81.6 FL (80.0-100.0); MEAN CORPUSCULAR HGB CONC 34.3 % (32.0-36.0); MONO % 7.9 % (0.0-8.0); NEUT % 73.3 % (16.0-70.0); PLATELET COUNT 244 TH/MM3 (150-450); RED BLOOD COUNT 4.68 MIL/MM3 (4.50-5.90); RED CELL DISTRIBUTION WIDTH 14.3 % (11.6-17.2); WHITE BLOOD COUNT 5.7 TH/MM3 (4.0-11.0)
[2016-12-23 11:05] LABS: ALT (GPT) 25 U/L (12-78); ANION GAP 11 MEQ/L (5-15); AST (GOT) 16 U/L (15-37); BICARBONATE 25.3 MEQ/L (21.0-32.0); BLOOD UREA NITROGEN 4 MG/DL (7-18); CHLORIDE 102 MEQ/L (98-107); GLOMERULAR FILTRATION RATE 258 ML/MIN (>89); POTASSIUM 3.4 MEQ/L (3.5-5.1); SODIUM (NA) 138 MEQ/L (136-145)
[2016-12-23 11:10] LABS: ALKALINE PHOSPHATASE 58 U/L (45-117); TOTAL BILIRUBIN ADULT 0.3 MG/DL (0.2-1.0)
--- NOTE | 2016-12-23 11:41 | HHI.GIFU ---
Subjective Remarks Pt sitting in bed, c/o worsening reflux, epigastric burning. Had nausea and vomiting and fever 100.9 this morning. WBC WNL. He did have regular diet yesterday. (Barbie Baltazar) Objective Vitals I&O Vital Signs Date Time Temp Pulse Resp B/P Pulse Ox O2 Delivery O2 Flow Rate FiO2 12/23/16 08:43 100.6 72 20 159/95 98 12/23/16 05:49 Nasal Cannula 2.00 12/23/16 04:00 99.8 73 18 158/82 94 12/23/16 00:30 97.6 67 18 171/54 94 12/22/16 21:15 99.7 75 20 175/99 12/22/16 20:00 75 12/22/16 18:19 74 12/22/16 17:10 18 12/22/16 13:56 66 18 145/90 99 12/22/16 12:58 74 12/22/16 12:35 74 18 151/87 98 12/22/16 11:50 97.3 63 20 161/109 97 I/O 12/22/16 12/22/16 12/22/16 12/23/16 12/23/16 12/23/16 07:00 15:00 23:00 07:00 15:00 23:00 Intake Total 270 ml 600 ml 480 ml Balance 270 ml 600 ml 480 ml Intake Oral 270 ml 600 ml 480 ml # Voids 1 4 2 3 # Bowel Movements 1 2 Laboratory Laboratory Tests Test 12/22/16 12/23/16 12/23/16 12:45 05:34 10:17 Hemoglobin A1c 13.0 Lipase 610 White Blood Count 5.7 Red Blood Count 4.68 Hemoglobin 13.1 Hematocrit 38.2 Mean Corpuscular Volume 81.6 Mean Corpuscular Hemoglobin 28.0 Mean Corpuscular Hemoglobin 34.3 Concent Red Cell Distribution Width 14.3 Platelet Count 244 Mean Platelet Volume 7.7 Neutrophils (%) (Auto) 73.3 Lymphocytes (%) (Auto) 16.9 Monocytes (%) (Auto) 7.9 Eosinophils (%) (Auto) 1.1 Basophils (%) (Auto) 0.8 Neutrophils # (Auto) 4.2 Lymphocytes # (Auto) 1.0 Monocytes # (Auto) 0.5 Eosinophils # (Auto) 0.1 Basophils # (Auto) 0.0 CBC Comment DIFF FINAL Differential Comment Sodium Level 138 Potassium Level 3.4 Chloride Level 102 Carbon Dioxide Level 25.3 Anion Gap 11 Blood Urea Nitrogen 4 Creatinine 0.49 Estimat Glomerular Filtration 258 Rate Random Glucose 202 Calcium Level 9.1 Total Bilirubin 0.3 Aspartate Amino Transf 16 (AST/SGOT) Alanine Aminotransferase 25 (ALT/SGPT) Alkaline Phosphatase 58 Total Protein 7.0 Albumin 2.6 Imaging Last Impressions Abdomen/Pelvis CT 12/17/16 0000 Signed Impressions: Service Date/Time: Sunday, December 18, 2016 00:51 - CONCLUSION: 1. Findings consistent with acute pancreatitis. Prominent fluid adjacent to the pancreas and tracking into the paracolic gutters and pelvis. 2. Mild hepatic steatosis. Emanuel Dimas MD Physical Exam HEENT: Normocephalic; atraumatic; CHEST: CTA CARDIAC: RRR ABDOMEN: Soft, obese, epigastric TTP, TTP LUQ; bowel sounds are present in all four quadrants. EXTREMITIES: No clubbing, cyanosis, or edema. SKIN: Normal; no rash; no jaundice. FLOATLIGHT POWDER MIXER: No focal deficits; alert and oriented times three. (Barbie Baltazar [facility]) Assessment and Plan Plan ASSESSMENT - Acute pancreatitis, most likely secondary to hypertriglyceridemia. Abdomen/ Pelvis CT (12/17/16)-----> 1. Findings consistent with acute pancreatitis. Prominent fluid adjacent to the pancreas and tracking into the paracolic gutters and pelvis. 2. Mild hepatic steatosis. One prior history about a year ago, etiology not determined at that time. Pt with significant hypertriglyceridemia on admission at 2462. Lipase 610 today - his diet was advanced and he had recurrence n/v and is still having epigastric and LUQ tenderness. Fever this morning 100.9. Will put on clears and monitor. D/W patient importance of low fat diet, avoiding ETOH/Marijuana, good control of triglycerides. - Severe hypertriglyceridemia. On admission, 2462. On Gemfibrozil, now 182. - GERD - pt c/o worsening epigastric burning after eating and acid reflux. Will make PPI BID and do EGD tomorrow. - DM per primary PLAN: - EGD tomorrow - obtain consents - clears for now - NPO after midnight - Continue gemfibrozil - BID protonix - Lipase in am - D/W patient importance of Low fat diet, good control of triglycerides, avoiding ETOH/Marijuana - Supportive care - Pt seen and examined by Dr. Vann and myself and this note is written on her behalf (Barbie Baltazar) Physician Comments seen, examined agree with above states pain medication may have triggered nausea, vomiting hungry now, wants to eat egd in am MRCP, HIDA scan in am to r/o biliary pathology (Chloé Vann MD) Barbie Baltazar December 23, 2016 11:41 Chloé Vann MD December 23, 2016 16:55
--- NOTE | 2016-12-23 12:39 | HHI.PR ---
Subjective Remarks Follow-up for acute pancreatitis Patient stated that he was able to advance his diet to a solid diet but afterwards had nausea vomiting. Patient also upset because the night nurse Gold accuse patient of taking pictures, left pill on the counter, did not give patient his medication when he said he would, left blood on the floor and then I cleaned it up. Patient's mother is also at the bedside. Objective Vitals Vital Signs Date Time Temp Pulse Resp B/P Pulse Ox O2 Delivery O2 Flow Rate FiO2 12/23/16 12:20 98.0 67 20 146/93 96 12/23/16 08:43 100.6 72 20 159/95 98 12/23/16 05:49 Nasal Cannula 2.00 12/23/16 04:00 99.8 73 18 158/82 94 12/23/16 00:30 97.6 67 18 171/54 94 12/22/16 21:15 99.7 75 20 175/99 12/22/16 20:00 75 12/22/16 18:19 74 12/22/16 17:10 18 12/22/16 13:56 66 18 145/90 99 12/22/16 12:58 74 I/O 12/22/16 12/22/16 12/22/16 12/23/16 12/23/16 12/23/16 07:00 15:00 23:00 07:00 15:00 23:00 Intake Total 270 ml 600 ml 480 ml Balance 270 ml 600 ml 480 ml Intake Oral 270 ml 600 ml 480 ml # Voids 1 4 2 3 # Bowel Movements 1 2 Result Diagram: 12/23/16 1017 12/23/16 1017 Objective Remarks General: No acute distress. Heart: Regular rate and rhythm. No murmur. Lungs: Clear to auscultation bilaterally. No wheezes, rales, or rhonchi. Breathing is nonlabored. Abdomen: Soft, tender to palpation in the midepigastric region, nondistended. Extremities: No lower extremity edema. Psych: Alert and oriented. Procedures None Medications and IVs Current Medications Ondansetron HCl (Zofran Inj) 4 mg STK-MED ONCE .ROUTE ; Start 12/17/16 at 11:29; Stop 12/17/16 at 11:30; Status DC Morphine Sulfate (Morphine Inj) 4 mg ONCE ONCE IV Last administered on 11:36; Start 12/17/16 at 11:30; Stop 12/17/16 at 11:32; Status DC Ondansetron HCl 4 mg 4 mg ONCE ONCE IVP Last administered on 12/17/16 11:36; Start 12/17/16 at 11:30; Stop 12/17/16 at 11:32; Status DC Sodium Chloride 1,000 ml @ 250 mls/hr Q4H IV ; Start 12/17/16 at 13:05; Stop 12/17/16 at 13:47; Status DC Dextrose/Sodium Chloride (D5W-NS 1000 ml Inj) 1,000 ml @ 200 mls/hr Q5H IV ; Start 12/17/16 at 13:05; Stop 12/17/16 at 13:47; Status DC Insulin Human Regular 12 units 12 units BOLUS ONCE IV PUSH Last administered on 12/17/16 13:25; Start 12/17/16 at 13:15; Stop 12/17/16 at 13:16; Status DC Insulin Human Regular 100 units/ Sodium Chloride 100 ml @ 0 mls/hr TITRATE IV ; Start 12/17/16 at 13:15; Stop 12/17/16 at 13:47; Status DC Potassium Chloride 100 ml @ 100 mls/hr Q1H PRN IV SEE LABEL COMMENTS; Start at 13:15; Stop 12/17/16 at 13:48; Status DC Potassium Chloride 100 ml @ 50 mls/hr Q2H PRN IV SEE LABEL COMMENTS; Start 12/17/16 at 13:15; Stop 12/17/16 at 13:48; Status DC Potassium Chloride 100 ml @ 100 mls/hr Q1H PRN IV SEE LABEL COMMENTS; Start at 13:15; Stop 12/17/16 at 13:48; Status DC Potassium Chloride 100 ml @ 100 mls/hr Q1H PRN IV SEE LABEL COMMENTS; Start at 13:15; Stop 12/17/16 at 13:48; Status DC Potassium Chloride 100 ml @ 50 mls/hr Q2H PRN IV SEE LABEL COMMENTS; Start 12/17/16 at 13:15; Stop 12/17/16 at 13:48; Status DC Potassium Chloride 100 ml @ 50 mls/hr Q2H PRN IV SEE LABEL COMMENTS; Start 12/17/16 at 13:15; Stop 12/17/16 at 13:48; Status DC Potassium Chloride 100 ml @ 50 mls/hr Q2H PRN IV SEE LABEL COMMENTS; Start 12/17/16 at 13:15; Stop 12/17/16 at 13:48; Status DC Potassium Chloride (KCl 20 Meq Premix Inj) 100 ml @ 50 mls/hr Q2H PRN IV SEE LABEL COMMENTS; Start 12/17/16 at 13:15; Stop 12/17/16 at 13:49; Status DC Sodium Bicarbonate (Sodium Bicarbonate 8.4% Inj) 100 meq UNSCH PRN IV SEE LABEL COMMENTS; Start 12/17/16 at 13:15; Stop 12/17/16 at 13:49; Status DC Sodium Bicarbonate 50 meq 50 meq UNSCH PRN IV SEE LABEL COMMENTS; Start at 13:15; Stop 12/17/16 at 13:49; Status DC Sodium Phosphate/ Sodium Chloride (Sodium Phosphate Inj/NS Inj) 105 ml @ 25 mls /hr UNSCH PRN IV SEE LABEL COMMENTS; Start 12/17/16 at 13:15; Stop 12/17/16 at 13 :49; Status DC Hydromorphone HCl (Dilaudid) 2 mg ONCE ONCE PO ; Start 12/17/16 at 13:15; Stop 12/17/16 at 13:21; Status DC Hydromorphone HCl (Dilaudid Pf Inj) 2 mg ONCE ONCE IVS Last administered on 13:39; Start 12/17/16 at 13:30; Stop 12/17/16 at 13:31; Status DC Pantoprazole Sodium (Protonix Inj) 40 mg DAILY IV Last administered on 09:32; Start 12/17/16 at 15:00; Stop 12/20/16 at 09:54; Status DC Albuterol/ Ipratropium (Duoneb Neb) 1 ampule Q4HR NEB PRN INH WHEEZING; Start 12/17/16 at 14:30 Heparin Sodium (Porcine) (Heparin Inj) 5,000 units Q12H SQ Last administered on 12/23/16 01:38; Start 12/17/16 at 15:00 Miscellaneous Information 1 Q361D XX Last administered on 12/17/16 14:30; Start 12/17/16 at 14:30 Chlorhexidine Gluconate (Chlorhexidine 2% Cloth) Taper DAILY@04 TOP Last administered on 12/20/16 03:38; Start 12/18/16 at 04:00; Stop 12/14/17 at 03:59 Chlorhexidine Gluconate (Chlorhexidine 2% Cloth) 3 pack UNSCH PRN TOP HYGIENIC CARE; Start 12/17/16 at 14:30 Dextrose (D50w (Vial) Inj) 25 ml UNSCH PRN IV PUSH HYPOGLYCEMIA-SEE COMMENTS; Start 12/17/16 at 14:30; Stop 12/17/16 at 17:24; Status DC Glucagon (Glucagon Inj) 1 mg UNSCH PRN OTHER HYPOGLYCEMIA-SEE COMMENTS; Start 12/17/16 at 14:30; Stop 12/17/16 at 17:24; Status DC Insulin Human Regular 1 1 Q4H SQ Last administered on 12/17/16 15:26; Start 12/17/16 at 15:00; Stop 12/17/16 at 17:21; Status DC Sodium Chloride 1,000 ml @ 125 mls/hr Q8H IV Last administered on 12/23/16 07 :00; Start 12/17/16 at 15:00 Piperacillin Sod/ Tazobactam Sod 100 ml @ 200 mls/hr Q6H IV Last administered on 12/22/16 08:58; Start 12/17/16 at 16:00; Stop 12/22/16 at 16:24; Status DC Sodium Chloride 1,000 ml @ 125 mls/hr Q8H IV ; Start 12/17/16 at 14:45; Stop 12/17/16 at 14:47; Status DC Sodium Chloride (NS 1000 ml Inj) 1,000 ml @ 999 mls/hr BOLUS ONCE IV Last administered on 12/17/16 15:19; Start 12/17/16 at 14:45; Stop 12/17/16 at 15:45; Status DC Diatrizoate Meglum/ Diatrizoate Sod ( Gastroview Liq) 18 ml ONCE ONCE PO Last administered on 12/17/16 16:51; Start 12/17/16 at 15:00; Stop 12/17/16 at 15: 01; Status DC Atorvastatin Calcium (Lipitor) 20 mg DAILY PO Last administered on 12/23/16 08 :03; Start 12/17/16 at 17:15 Ondansetron HCl (Zofran Inj) 4 mg Q8H PRN IV PUSH NAUSEA OR VOMITING Last administered on 12/18/16 01:30; Start 12/17/16 at 17:15; Stop 12/18/16 at 06:51; Status DC Hydromorphone HCl 1 mg 1 mg Q4H PRN IV PUSH PAIN 1-10 Last administered on 09:37; Start 12/17/16 at 17:15; Stop 12/18/16 at 10:40; Status DC Insulin Human Regular/Sodium Chloride (NovoLIN R (IV INFUSION)/NS Inj) 100 ml @ 0 mls/hr TITRATE IV Last administered on 12/18/16 22:11; Start 12/17/16 at 17:30 ; Stop 12/19/16 at 09:26; Status DC Dextrose (D50w (Vial) Inj) 25 ml UNSCH PRN IV PUSH SEE LABEL COMMENTS; Start at 17:30; Stop 12/19/16 at 09:26; Status DC Miscellaneous Information 1 ONCE ONCE XX Last administered on 12/17/16 17:30; Start 12/17/16 at 17:30; Stop 12/17/16 at 17:31; Status DC Hydralazine HCl (Apresoline Inj) 10 mg Q6H PRN IV PUSH SYS BP GREATER THAN 160 MMHG Last administered on 12/23/16 01:37; Start 12/17/16 at 17:30 Iohexol (Omnipaque 350 Inj) 100 ml STK-MED ONCE IV Last administered on 01:17; Start 12/18/16 at 01:17; Stop 12/18/16 at 01:18; Status DC Ondansetron HCl 4 mg 4 mg Q6H PRN IV PUSH NAUSEA OR VOMITING Last administered on 12/18/16 09:37; Start 12/18/16 at 06:51; Stop 12/18/16 at 10:40; Status DC Sodium Chloride (NS 1000 ml Inj) 1,000 ml @ 999 mls/hr Q1H1M IV Last administered on 12/18/16 08:01; Start 12/18/16 at 07:00; Stop 12/18/16 at 09:00; Status DC Hydromorphone HCl (Dilaudid Pf Inj) 1 mg Q2HR PRN IV PUSH PAIN 1-10 Last administered on 12/23/16 11:07; Start 12/18/16 at 12:00 Ondansetron HCl (Zofran Inj) 4 mg Q4HR PRN IV PUSH NAUSEA OR VOMITING Last administered on 12/23/16 08:09; Start 12/18/16 at 12:00 Prochlorperazine Edisylate 5 mg 5 mg Q6H PRN IV PUSH nausea Last administered on 12/22/16 21:30; Start 12/18/16 at 11:00 Magnesium Sulfate/ Dextrose 100 ml @ 100 mls/hr Q1H IV Last administered on 15:40; Start 12/18/16 at 12:00; Stop 12/18/16 at 13:59; Status DC Sodium Phosphate/ Sodium Chloride (Sodium Phosphate Inj/NS Inj) 155 ml @ 38.75 mls/ hr ONCE ONCE IV Last administered on 12/18/16 15:40; Start 12/18/16 at 12: 00; Stop 12/18/16 at 15:59; Status DC Gemfibrozil 600 mg 600 mg BIDAC PO Last administered on 12/23/16 05:35; Start 12/18/16 at 16:00 Sodium Phosphate/ Sodium Chloride (Sodium Phosphate Inj/NS 250 ml Inj) 260 ml @ 43.333 mls/ hr ONCE ONCE IV Last administered on 12/19/16 08:00; Start at 06:45; Stop 12/19/16 at 12:44; Status DC Potassium Chloride (KCl) 40 meq ONCE ONCE PO Last administered on 12/19/16 06: 52; Start 12/19/16 at 06:45; Stop 12/19/16 at 06:47; Status DC Insulin Detemir (Levemir Inj) 5 units Q12HR SQ Last administered on 12/23/16 08:05; Start 12/19/16 at 10:00 Dextrose (D50w (Vial) Inj) 25 ml UNSCH PRN IV PUSH HYPOGLYCEMIA-SEE COMMENTS; Start 12/19/16 at 09:30 Glucagon (Glucagon Inj) 1 mg UNSCH PRN OTHER HYPOGLYCEMIA-SEE COMMENTS; Start 12/19/16 at 09:30 Insulin Human Regular (NovoLIN R SUPPLEMENTAL SCALE) 1 ACHS SLIDING SCALE SQ Last administered on 12/23/16 05:42; Start 12/19/16 at 11:00 Docusate Sodium (Colace) 100 mg BID PO Last administered on 12/23/16 08:02; Start 12/19/16 at 21:00 Pantoprazole Sodium (Protonix) 40 mg DAILY PO Last administered on 12/23/16 08 :09; Start 12/21/16 at 09:00; Stop 12/23/16 at 11:40; Status DC Enalaprilat (Vasotec Inj) 1.25 mg Q6H PRN IV PUSH BLOOD PRESSURE > 180/100; Start 12/20/16 at 18:00 Amlodipine Besylate (Norvasc) 5 mg DAILY PO Last administered on 12/23/16 08: 09; Start 12/21/16 at 09:00 Acetaminophen/ Hydrocodone Bitart ([place]ett 5-325 Mg) 1 tab Q6H PRN PO pain 1-5 Last administered on 12/22/16 21:30; Start 12/22/16 at 16:30; Stop 12/23/16 at 12:35; Status DC Acetaminophen/ Hydrocodone Bitart (Moffett 5-325 Mg) 2 tab Q6H PRN PO pain 6-10 ; Start 12/22/16 at 16:30; Stop 12/23/16 at 12:35; Status DC Acetaminophen (Tylenol) 650 mg Q4H PRN PO fever>101 Last administered on 11:03; Start 12/23/16 at 09:30 Pantoprazole Sodium (Protonix) 40 mg BID PO ; Start 12/23/16 at 21:00 Oxycodone/ Acetaminophen (Percocet 5-325 Mg) 1 tab Q6H PRN PO pain 1-5; Start 12/23/16 at 12:45; Status UNV A/P Problem List: (1) Pancreatitis ICD Code: K85.90 Status: Acute (2) Hyperglycemia due to type 1 diabetes mellitus ICD Code: E10.65 Status: Acute (3) Hypertriglyceridemia ICD Code: E78.1 Status: Acute (4) Hypokalemia ICD Code: E87.6 Status: Resolved Assessment and Plan 1. Acute pancreatitis secondary to hypertriglyceridemia - Appreciate gastroenterology recommendations. Continue pain control. -Patient had nausea vomiting yesterday but elevated lipase. Per GI patient's place on a clear liquid diet and nothing by mouth at midnight. Patient scheduled for EGD tomorrow. 2. Hypertriglyceridemia: -Continue gemfibrozil, Lipitor. Triglyceride level is improving. 3. Diabetes mellitus, type I: - Increase Levemir to 10 units twice a day since pressures are running in the 200s.. Monitor Accu-Cheks and cover with sliding scale insulin. -Hemoglobin A1c is 13. 4. Hypokalemia: Resolved. 5. GI prophylaxis: Protonix. 6. DVT prophylaxis: SCDs, subcutaneous heparin. Discharge Planning Patient is unable to tolerate by mouth intake so requires continual hospitalization. He is scheduled for EGD tomorrow. Elodia Sahu MD December 23, 2016 12:39
[2016-12-23] MEDS ORDERED: oxyCODONE/ACETAMINOPHEN 5 MG/325 MG TAB PO PRN (12:45)
[2016-12-23] MEDS: oxyCODONE/ACETAMINOPHEN 5 MG/325 MG TAB PO PRN ×2 (13:14→16:10)
--- NOTE | 2016-12-23 20:18 | RADRPT ---
EXAM DATE/TIME: 12/23/2016 19:32 [facility] COMPARISON: CT ABDOMEN & PELVIS W CONTRAST, December 18, 2016, 0:51. INDICATIONS : Pancreatitis. Nausea, vomiting and abdominal pain. MEDICAL HISTORY : Diabetes mellitus type 2. SURGICAL HISTORY : None. ENCOUNTER: Initial ACUITY: 3 day PAIN SCORE: 4/10 LOCATION: Right upper quadrant TECHNIQUE: Multiplanar, multisequence magnetic resonance imaging of the abdomen was performed. High-resolution 3D dataset was utilized to reconstruct maximum-intensity projection (MIP) images. FINDINGS: INTRAHEPATIC BILE DUCTS: Within normal limits. No significant anatomical variant is present. EXTRAHEPATIC BILE DUCTS: The common bile duct measures 2-3 mm No stone or filling defect is identified. GALLBLADDER: No stones, wall thickening, or pericholecystic fluid. LIVER: Normal size and signal intensity. No concerning liver lesion is identified on this non-contrast exam. PANCREAS: Diffusely edematous with prominent surrounding inflammatory changes and fluid accumulation in the les ser sac. OTHER: The remaining visualized structures demonstrate no acute abnormality on this non-contrast exam. CONCLUSION: Findings of pancreatitis. Fluid tingling in the lesser sac. Biliary tree appears normal Juni Obregon MD on December 23, 2016 at 20:10 Board Certified Radiologist. This report was verified electronically.
[2016-12-24] VITALS (7 sets, daily range): BP systolic 135–155; BP diastolic 84–93; PULSE 60–85; RESP 17–20; TEMP 97.3–98.4; O2SAT 95–97
[2016-12-24] MEDS: HEPARIN SODIUM - SQ 10,000 UNITS/ML VIAL SQ SCH ×2 (03:00→15:00)
[2016-12-24] MEDS: CHLORHEXIDINE GLUCONATE 2 % 1 PACK (2 CLOTHS) TOP SCH (03:23)
[2016-12-24] MEDS: GEMFIBROZIL 600 MG TAB PO SCH ×3 (06:07→15:49)
[2016-12-24] MEDS: SODIUM CHLOR 0.9% 1000 ML INJ 1,000 ML IV SCH ×3 (06:09→21:30)
[2016-12-24] MEDS: INSULIN NovoLIN REGULAR SUPPLEMENTAL SCALE SQ SCH ×4 (06:39→21:32)
[2016-12-24] MEDS: HYDROmorphone HCL PF 1 MG/ML VIAL IV PUSH PRN ×4 (06:42→23:29)
[2016-12-24] MEDS: ATORVASTATIN 20 MG TAB PO SCH (07:45)
[2016-12-24] MEDS: PANTOPRAZOLE SOD 40 MG DELAYED RELEASE TAB PO SCH ×2 (07:45→21:15)
[2016-12-24] MEDS: DOCUSATE SODIUM 100 MG CAP PO SCH ×2 (07:45→21:15)
[2016-12-24] MEDS: amLODIPine BESYLATE 5 MG TAB PO SCH ×2 (07:45→07:46)
[2016-12-24] MEDS: INSULIN DETEMIR 100 UNITS/ML VIAL SQ SCH ×2 (07:52→21:32)
[2016-12-24] MEDS ORDERED: PROPOFOL 200 MG/20 ML AMP IV ONE (14:02)
--- NOTE | 2016-12-24 14:20 | GIPROC ---
[facility] [address] [facility]. [facility], [address] EGD PROCEDURE REPORT EXAM DATE: 12/24/2016 PATIENT NAME: Jimmie العراقي MR #: [id number] BIRTHDATE: 1995 ATTENDING: Chloé Vann MD ORDER #: [id number] AND DRYING SUPER[employer]OR COOKING CASING: Delano Loza and Edison Hoffmann STATUS: inpatient INDICATIONS: The patient is a 21 yr old male here for an EGD due to abdominal pain, nausea PROCEDURE PERFORMED: EGD w/ biopsy MEDICATIONS: None and Per Anesthesia. TOPICAL ANESTHETIC: none CONSENT: The patient understands the risks and benefits of the procedure and understands that these risks include, but are not limited to: sedation, allergic reaction, infection, perforation and/or bleeding. Alternative means of evaluation and treatment include, among others: physical exam, x-rays, and/or surgical intervention. The patient elects to proceed with this endoscopic procedure. medical equipment was checked for proper function. Hand hygiene and appropriate measures for infection prevention was taken. After the risks, benefits and alternatives of the procedure were thoroughly explained, Informed consent was verified, confirmed and timeout was successfully executed by the treatment team. The patient was anesthetized with topical anesthesia and the Gonna[employer] [id number] endoscope was introduced through the mouth and advanced to the second portion of the duodenum. Retroflexed views revealed a hiatal hernia The gastroscope was then slowly withdrawn and removed. Gastritis antrum-biopsy. ADVERSE EVENTS: There were no complications. IMPRESSIONS: 1. Gastritis antrum-biopsy 2. Retroflexed views revealed a hiatal hernia RECOMMENDATIONS: 1. Await biopsy results. Biopsy results will not be ready for 7-10 days. If you don't hear from us in two weeks, call our office for biopsy results. 2. Anti-reflux regimen 3. Avoid NSAIDS 4. Fu hida, mrcp PATIENT CONDITION: stable DISPOSITION: Inpatient REPEAT EXAM: EGD pending biopsy results Chloé Vann MD eSigned: Chloé Vann MD 12/24/2016 2:20 PM cc:
--- NOTE | 2016-12-24 14:34 | RADRPT ---
EXAM DATE/TIME: 12/24/2016 10:43 [facility] COMPARISON: No previous studies available for comparison. INDICATIONS : Abdominal pain with nausea. DOSE: 4.3 mCi Tc99m Mebrofenin IV MEDICAL HISTORY : Diabetes mellitus type 2. SURGICAL HISTORY : None. ENCOUNTER: Initial ACUITY: 3 days PAIN SCALE: 4/10 LOCATION: Right upper quadrant TECHNIQUE: Following the intravenous administration of radiotracer, dynamic sequential images were performed wit h continuous acquisition. FINDINGS: There is prompt extraction of radiotracer activity seen in the gallbladder common duct and small gt l in 20 minutes. There is no intra-cystic duct or common duct obstruction. There is poor response t o CCK. This can be seen with chronic cholecystitis. CONCLUSION: There is no evidence of cystic duct or common duct obstruction. Poor response to CCK. Bean Becerra MD FACR on December 24, 2016 at 14:31 Board Certified Radiologist. This report was verified electronically.
[2016-12-24] MEDS ORDERED: ONDANSETRON HCL 4 MG/2 ML VIAL IV PUSH ONE (14:38)
[2016-12-24] MEDS: oxyCODONE/ACETAMINOPHEN 5 MG/325 MG TAB PO PRN (15:48)
--- NOTE | 2016-12-24 17:28 | HHI.PR ---
Subjective Remarks f/u for abdominal pain and N/V patient stated he tolerating the clear liquid diet better. Abdominal pain improved but continues to require IV pain medication. Patient mother is at the bedside. Objective Vitals Vital Signs Date Time Temp Pulse Resp B/P Pulse Ox O2 Delivery O2 Flow Rate FiO2 12/24/16 16:20 98.1 85 20 140/87 97 12/24/16 14:23 85 16 151/95 98 12/24/16 14:16 82 16 148/88 96 12/24/16 14:10 98.1 86 16 140/85 98 12/24/16 08:30 97.5 62 20 155/93 97 12/24/16 08:09 61 12/24/16 08:09 Room Air 12/24/16 04:00 97.3 65 17 135/84 97 12/24/16 00:00 98.4 74 18 141/89 97 12/23/16 22:21 82 12/23/16 21:20 96 Room Air 12/23/16 20:00 98.0 78 17 145/86 96 I/O 12/23/16 12/23/16 12/23/16 12/24/16 12/24/16 12/24/16 06:59 14:59 22:59 06:59 14:59 22:59 Intake Total 480 ml 600 ml 1430 ml 1190 ml 50 ml Balance 480 ml 600 ml 1430 ml 1190 ml 50 ml Intake Oral 480 ml 600 ml 480 ml 240 ml IV Total 950 ml 950 ml 50 ml # Voids 3 2 2 2 # Bowel Movements 0 0 Result Diagram: 12/23/16 1017 12/23/16 1017 Objective Remarks General: No acute distress. Heart: Regular rate and rhythm. No murmur. Lungs: Clear to auscultation bilaterally. No wheezes, rales, or rhonchi. Breathing is nonlabored. Abdomen: Soft, tender to palpation in the midepigastric region, nondistended. Extremities: No lower extremity edema. Psych: Alert and oriented. Procedures None Medications and IVs Current Medications Ondansetron HCl (Zofran Inj) 4 mg STK-MED ONCE .ROUTE ; Start 12/17/16 at 11:29; Stop 12/17/16 at 11:30; Status DC Morphine Sulfate (Morphine Inj) 4 mg ONCE ONCE IV Last administered on 11:36; Start 12/17/16 at 11:30; Stop 12/17/16 at 11:32; Status DC Ondansetron HCl 4 mg 4 mg ONCE ONCE IVP Last administered on 12/17/16 11:36; Start 12/17/16 at 11:30; Stop 12/17/16 at 11:32; Status DC Sodium Chloride 1,000 ml @ 250 mls/hr Q4H IV ; Start 12/17/16 at 13:05; Stop 12/17/16 at 13:47; Status DC Dextrose/Sodium Chloride (D5W-NS 1000 ml Inj) 1,000 ml @ 200 mls/hr Q5H IV ; Start 12/17/16 at 13:05; Stop 12/17/16 at 13:47; Status DC Insulin Human Regular 12 units 12 units BOLUS ONCE IV PUSH Last administered on 12/17/16 13:25; Start 12/17/16 at 13:15; Stop 12/17/16 at 13:16; Status DC Insulin Human Regular 100 units/ Sodium Chloride 100 ml @ 0 mls/hr TITRATE IV ; Start 12/17/16 at 13:15; Stop 12/17/16 at 13:47; Status DC Potassium Chloride 100 ml @ 100 mls/hr Q1H PRN IV SEE LABEL COMMENTS; Start at 13:15; Stop 12/17/16 at 13:48; Status DC Potassium Chloride 100 ml @ 50 mls/hr Q2H PRN IV SEE LABEL COMMENTS; Start 12/17/16 at 13:15; Stop 12/17/16 at 13:48; Status DC Potassium Chloride 100 ml @ 100 mls/hr Q1H PRN IV SEE LABEL COMMENTS; Start at 13:15; Stop 12/17/16 at 13:48; Status DC Potassium Chloride 100 ml @ 100 mls/hr Q1H PRN IV SEE LABEL COMMENTS; Start at 13:15; Stop 12/17/16 at 13:48; Status DC Potassium Chloride 100 ml @ 50 mls/hr Q2H PRN IV SEE LABEL COMMENTS; Start 12/17/16 at 13:15; Stop 12/17/16 at 13:48; Status DC Potassium Chloride 100 ml @ 50 mls/hr Q2H PRN IV SEE LABEL COMMENTS; Start 12/17/16 at 13:15; Stop 12/17/16 at 13:48; Status DC Potassium Chloride 100 ml @ 50 mls/hr Q2H PRN IV SEE LABEL COMMENTS; Start 12/17/16 at 13:15; Stop 12/17/16 at 13:48; Status DC Potassium Chloride (KCl 20 Meq Premix Inj) 100 ml @ 50 mls/hr Q2H PRN IV SEE LABEL COMMENTS; Start 12/17/16 at 13:15; Stop 12/17/16 at 13:49; Status DC Sodium Bicarbonate (Sodium Bicarbonate 8.4% Inj) 100 meq UNSCH PRN IV SEE LABEL COMMENTS; Start 12/17/16 at 13:15; Stop 12/17/16 at 13:49; Status DC Sodium Bicarbonate 50 meq 50 meq UNSCH PRN IV SEE LABEL COMMENTS; Start at 13:15; Stop 12/17/16 at 13:49; Status DC Sodium Phosphate/ Sodium Chloride (Sodium Phosphate Inj/NS Inj) 105 ml @ 25 mls /hr UNSCH PRN IV SEE LABEL COMMENTS; Start 12/17/16 at 13:15; Stop 12/17/16 at 13 :49; Status DC Hydromorphone HCl (Dilaudid) 2 mg ONCE ONCE PO ; Start 12/17/16 at 13:15; Stop 12/17/16 at 13:21; Status DC Hydromorphone HCl (Dilaudid Pf Inj) 2 mg ONCE ONCE IVS Last administered on 13:39; Start 12/17/16 at 13:30; Stop 12/17/16 at 13:31; Status DC Pantoprazole Sodium (Protonix Inj) 40 mg DAILY IV Last administered on 09:32; Start 12/17/16 at 15:00; Stop 12/20/16 at 09:54; Status DC Albuterol/ Ipratropium (Duoneb Neb) 1 ampule Q4HR NEB PRN INH WHEEZING; Start 12/17/16 at 14:30 Heparin Sodium (Porcine) (Heparin Inj) 5,000 units Q12H SQ Last administered on 12/23/16 13:15; Start 12/17/16 at 15:00 Miscellaneous Information 1 Q361D XX Last administered on 12/17/16 14:30; Start 12/17/16 at 14:30 Chlorhexidine Gluconate (Chlorhexidine 2% Cloth) Taper DAILY@04 TOP Last administered on 12/20/16 03:38; Start 12/18/16 at 04:00; Stop 12/14/17 at 03:59 Chlorhexidine Gluconate (Chlorhexidine 2% Cloth) 3 pack UNSCH PRN TOP HYGIENIC CARE; Start 12/17/16 at 14:30 Dextrose (D50w (Vial) Inj) 25 ml UNSCH PRN IV PUSH HYPOGLYCEMIA-SEE COMMENTS; Start 12/17/16 at 14:30; Stop 12/17/16 at 17:24; Status DC Glucagon (Glucagon Inj) 1 mg UNSCH PRN OTHER HYPOGLYCEMIA-SEE COMMENTS; Start 12/17/16 at 14:30; Stop 12/17/16 at 17:24; Status DC Insulin Human Regular 1 1 Q4H SQ Last administered on 12/17/16 15:26; Start 12/17/16 at 15:00; Stop 12/17/16 at 17:21; Status DC Sodium Chloride 1,000 ml @ 125 mls/hr Q8H IV Last administered on 12/24/16 15 :54; Start 12/17/16 at 15:00 Piperacillin Sod/ Tazobactam Sod 100 ml @ 200 mls/hr Q6H IV Last administered on 12/22/16 08:58; Start 12/17/16 at 16:00; Stop 12/22/16 at 16:24; Status DC Sodium Chloride 1,000 ml @ 125 mls/hr Q8H IV ; Start 12/17/16 at 14:45; Stop 12/17/16 at 14:47; Status DC Sodium Chloride (NS 1000 ml Inj) 1,000 ml @ 999 mls/hr BOLUS ONCE IV Last administered on 12/17/16 15:19; Start 12/17/16 at 14:45; Stop 12/17/16 at 15:45; Status DC Diatrizoate Meglum/ Diatrizoate Sod ( Gastroview Liq) 18 ml ONCE ONCE PO Last administered on 12/17/16 16:51; Start 12/17/16 at 15:00; Stop 12/17/16 at 15: 01; Status DC Atorvastatin Calcium (Lipitor) 20 mg DAILY PO Last administered on 12/24/16 07 :45; Start 12/17/16 at 17:15 Ondansetron HCl (Zofran Inj) 4 mg Q8H PRN IV PUSH NAUSEA OR VOMITING Last administered on 12/18/16 01:30; Start 12/17/16 at 17:15; Stop 12/18/16 at 06:51; Status DC Hydromorphone HCl 1 mg 1 mg Q4H PRN IV PUSH PAIN 1-10 Last administered on 09:37; Start 12/17/16 at 17:15; Stop 12/18/16 at 10:40; Status DC Insulin Human Regular/Sodium Chloride (NovoLIN R (IV INFUSION)/NS Inj) 100 ml @ 0 mls/hr TITRATE IV Last administered on 12/18/16 22:11; Start 12/17/16 at 17:30 ; Stop 12/19/16 at 09:26; Status DC Dextrose (D50w (Vial) Inj) 25 ml UNSCH PRN IV PUSH SEE LABEL COMMENTS; Start at 17:30; Stop 12/19/16 at 09:26; Status DC Miscellaneous Information 1 ONCE ONCE XX Last administered on 12/17/16 17:30; Start 12/17/16 at 17:30; Stop 12/17/16 at 17:31; Status DC Hydralazine HCl (Apresoline Inj) 10 mg Q6H PRN IV PUSH SYS BP GREATER THAN 160 MMHG Last administered on 12/23/16 01:37; Start 12/17/16 at 17:30 Iohexol (Omnipaque 350 Inj) 100 ml STK-MED ONCE IV Last administered on 01:17; Start 12/18/16 at 01:17; Stop 12/18/16 at 01:18; Status DC Ondansetron HCl 4 mg 4 mg Q6H PRN IV PUSH NAUSEA OR VOMITING Last administered on 12/18/16 09:37; Start 12/18/16 at 06:51; Stop 12/18/16 at 10:40; Status DC Sodium Chloride (NS 1000 ml Inj) 1,000 ml @ 999 mls/hr Q1H1M IV Last administered on 12/18/16 08:01; Start 12/18/16 at 07:00; Stop 12/18/16 at 09:00; Status DC Hydromorphone HCl (Dilaudid Pf Inj) 1 mg Q2HR PRN IV PUSH PAIN 1-10 Last administered on 12/24/16 06:42; Start 12/18/16 at 12:00 Ondansetron HCl (Zofran Inj) 4 mg Q4HR PRN IV PUSH NAUSEA OR VOMITING Last administered on 12/23/16 23:48; Start 12/18/16 at 12:00 Prochlorperazine Edisylate 5 mg 5 mg Q6H PRN IV PUSH nausea Last administered on 12/22/16 21:30; Start 12/18/16 at 11:00 Magnesium Sulfate/ Dextrose 100 ml @ 100 mls/hr Q1H IV Last administered on 15:40; Start 12/18/16 at 12:00; Stop 12/18/16 at 13:59; Status DC Sodium Phosphate/ Sodium Chloride (Sodium Phosphate Inj/NS Inj) 155 ml @ 38.75 mls/ hr ONCE ONCE IV Last administered on 12/18/16 15:40; Start 12/18/16 at 12: 00; Stop 12/18/16 at 15:59; Status DC Gemfibrozil 600 mg 600 mg BIDAC PO Last administered on 12/24/16 15:49; Start 12/18/16 at 16:00 Sodium Phosphate/ Sodium Chloride (Sodium Phosphate Inj/NS 250 ml Inj) 260 ml @ 43.333 mls/ hr ONCE ONCE IV Last administered on 12/19/16 08:00; Start at 06:45; Stop 12/19/16 at 12:44; Status DC Potassium Chloride (KCl) 40 meq ONCE ONCE PO Last administered on 12/19/16 06: 52; Start 12/19/16 at 06:45; Stop 12/19/16 at 06:47; Status DC Insulin Detemir (Levemir Inj) 5 units Q12HR SQ Last administered on 12/23/16 08:05; Start 12/19/16 at 10:00; Stop 12/23/16 at 12:44; Status DC Dextrose (D50w (Vial) Inj) 25 ml UNSCH PRN IV PUSH HYPOGLYCEMIA-SEE COMMENTS; Start 12/19/16 at 09:30 Glucagon (Glucagon Inj) 1 mg UNSCH PRN OTHER HYPOGLYCEMIA-SEE COMMENTS; Start 12/19/16 at 09:30 Insulin Human Regular (NovoLIN R SUPPLEMENTAL SCALE) 1 ACHS SLIDING SCALE SQ Last administered on 12/24/16 06:39; Start 12/19/16 at 11:00 Docusate Sodium (Colace) 100 mg BID PO Last administered on 12/24/16 07:45; Start 12/19/16 at 21:00 Pantoprazole Sodium (Protonix) 40 mg DAILY PO Last administered on 12/23/16 08 :09; Start 12/21/16 at 09:00; Stop 12/23/16 at 11:40; Status DC Enalaprilat (Vasotec Inj) 1.25 mg Q6H PRN IV PUSH BLOOD PRESSURE > 180/100; Start 12/20/16 at 18:00 Amlodipine Besylate (Norvasc) 5 mg DAILY PO Last administered on 12/24/16 07: 45; Start 12/21/16 at 09:00 Acetaminophen/ Hydrocodone Bitart ([place] 5-325 Mg) 1 tab Q6H PRN PO pain 1-5 Last administered on 12/22/16 21:30; Start 12/22/16 at 16:30; Stop 12/23/16 at 12:35; Status DC Acetaminophen/ Hydrocodone Bitart ([place] 5-325 Mg) 2 tab Q6H PRN PO pain 6-10 ; Start 12/22/16 at 16:30; Stop 12/23/16 at 12:35; Status DC Acetaminophen (Tylenol) 650 mg Q4H PRN PO fever>101 Last administered on 11:03; Start 12/23/16 at 09:30 Pantoprazole Sodium (Protonix) 40 mg BID PO Last administered on 12/24/16 07: 45; Start 12/23/16 at 21:00 Oxycodone/ Acetaminophen (Percocet 5-325 Mg) 1 tab Q6H PRN PO PAIN SCALE 1 TO 5 Last administered on 12/24/16 15:48; Start 12/23/16 at 12:45 Oxycodone/ Acetaminophen (Percocet 5-325 Mg) 2 tab Q6H PRN PO PAIN SCALE 6 TO 10; Start 12/23/16 at 12:45 Insulin Detemir (Levemir Inj) 10 units Q12HR SQ Last administered on 12/24/16 07:52; Start 12/23/16 at 21:00 Amlodipine Besylate (Norvasc) 5 mg DAILY PO Last administered on 12/24/16 07: 46; Start 12/23/16 at 12:45 Propofol (Diprivan 200 Mg/20 ml Inj) 210 mg STK-MED ONCE IV ; Start 12/24/16 at 14:02; Stop 12/24/16 at 14:25; Status DC Ondansetron HCl (Zofran Inj) 4 mg STK-MED ONCE IV PUSH Last administered on 14:38; Start 12/24/16 at 14:38; Stop 12/24/16 at 14:39; Status DC A/P Problem List: (1) Pancreatitis ICD Code: K85.90 Status: Acute (2) Hyperglycemia due to type 1 diabetes mellitus ICD Code: E10.65 Status: Acute (3) Hypertriglyceridemia ICD Code: E78.1 Status: Acute (4) Hypokalemia ICD Code: E87.6 Status: Resolved Assessment and Plan Acute pancreatitis secondary to hypertriglyceridemia - Appreciate gastroenterology recommendations. Continue pain control. -Patient had EGD done today which showed gastritis with hiatal hernia. HIDA scan showed no obstruction but abnormal response to CCK. Concerning for biliary dyskinesia versus chronic cholecystitis. Recommend consult to Gen. surgery due to patient being symptomatic. -Will place consult for general surgery. biliary dyskinesia versus chronic cholecystitis -see treatment as above. Hypertriglyceridemia: -Continue gemfibrozil, Lipitor. Triglyceride level is improving. Diabetes mellitus, type I: -on Levemir to 10 units twice a day. Monitor Accu-Cheks and cover with sliding scale insulin. -Hemoglobin A1c is 13. Hypokalemia: Resolved. GI prophylaxis: Protonix. DVT prophylaxis: SCDs, subcutaneous heparin. Discharge Planning Patient is unable to tolerate by mouth intake and continues to have abdominal pain so requires continual hospitalization. He may need a laparoscopic cholecystectomy. General surgeon consulted. Elodia Sahu MD December 24, 2016 17:28
--- NOTE | 2016-12-24 17:41 | PD.CONS ---
cc: Kaur Tejeda MD HPI Service General Surgery Consult Requested By Dr. Vann Reason for Consult Recurrent pancreatitis Abnormal HIDA scan Primary Care Physician Non-Staff History of Present Illness This is a 21 year old male with a past medical history of insulin dependent diabetes mellitus and hypercholesteremia who presents with abdominal pain. A ct abd/pelvis was done which showed acute pancreatitis. He has an elevated lipase. He had a triglyceride level of 2462. The patient has been followed by GI. During this admission the patient had an EGD done by Dr. Vann. The patient states he had a similar episode of acute pancreatics about 18 months ago. Ever since this episode the patient had had dull abdominal pain with mild nausea and vomiting. The patient reports he develops RUQ pain when he eats greasy foods. A General Surgery consultation has been requested for evaluation of gallbladder. Review of Systems Constitutional: DENIES: Fever, Chills Endocrine: DENIES: Polydipsia, Polyuria, Polyphagia Eyes: DENIES: Diplopia Ears, nose, mouth, throat: DENIES: Tinnitus Respiratory: DENIES: Apneas, Cough Cardiovascular: DENIES: Chest pain Gastrointestinal: COMPLAINS OF: Abdominal pain (LUQ pain ), Nausea, Vomiting Genitourinary: DENIES: Urgency, Hematuria Musculoskeletal: DENIES: Joint pain Integumentary: DENIES: Abnormal pigmentation Hematologic/lymphatic: DENIES: Bruising Immunologic/allergic: DENIES: Eczema Neurologic: DENIES: Headache Psychiatric: DENIES: Mood changes, Depression, Hallucinations Past Family Social History Past Medical History Insulin dependent diabetes mellitus Hypertriglyceridemia Past Surgical History None Reported Medications Insulin Protonix Allergies: Coded Allergies: No Known Allergies (Unverified , 10/03/14) Active Ordered Medications Current Medications Medications (Trade) Dose Ordered Sig/Sukhdeep Route Start Time Stop Time Status Last Admin (Heparin Inj) 5,000 units Q12H SQ 12/17/16 15:00 12/23/16 13:15 Miscellaneous Information 1 Q361D XX 12/17/16 14:30 12/17/16 14:30 (Chlorhexidine 2% Cloth) Taper DAILY@04 TOP 12/18/16 04:00 12/14/17 03:59 12/20/16 03:38 Chlorhexidine Gluconate 3 pack 3 pack UNSCH PRN TOP 12/17/16 14:30 (NS 1000 ml Inj) 1,000 ml @ 125 mls/hr Q8H IV 12/17/16 15:00 12/24/16 15:54 (Lipitor) 20 mg DAILY PO 12/17/16 17:15 12/24/16 07:45 (Apresoline Inj) 10 mg Q6H PRN IV PUSH 12/17/16 17:30 12/23/16 01:37 (Dilaudid Pf Inj) 1 mg Q2HR PRN IV PUSH 12/18/16 12:00 12/24/16 06:42 (Zofran Inj) 4 mg Q4HR PRN IV PUSH 12/18/16 12:00 12/23/16 23:48 (Compazine Inj) 5 mg Q6H PRN IV PUSH 12/18/16 11:00 12/22/16 21:30 (Lopid) 600 mg BIDAC PO 12/18/16 16:00 12/24/16 15:49 (D50w (Vial) Inj) 25 ml UNSCH PRN IV PUSH 12/19/16 09:30 (Glucagon Inj) 1 mg UNSCH PRN OTHER 12/19/16 09:30 (Colace) 100 mg BID PO 12/19/16 21:00 12/24/16 07:45 (Vasotec Inj) 1.25 mg Q6H PRN IV PUSH 12/20/16 18:00 (Norvasc) 5 mg DAILY PO 12/21/16 09:00 12/24/16 07:45 (Tylenol) 650 mg Q4H PRN PO 12/23/16 09:30 12/23/16 11:03 (Protonix) 40 mg BID PO 12/23/16 21:00 12/24/16 07:45 (Percocet 5-325 Mg) 1 tab Q6H PRN PO 12/23/16 12:45 12/24/16 15:48 (Percocet 5-325 Mg) 2 tab Q6H PRN PO 12/23/16 12:45 (Levemir Inj) 10 units Q12HR SQ 12/23/16 21:00 12/24/16 07:52 (Norvasc) 5 mg DAILY PO 12/23/16 12:45 12/24/16 07:46 Family History Non contributory Social History + Tobacco use Occasional ETOH use Denies illicit drug use although his drug toxicology is positive for cannabinoids Physical Exam Vital Signs Vital Signs Date Time Temp Pulse Resp B/P Pulse Ox O2 Delivery O2 Flow Rate FiO2 12/24/16 16:20 98.1 85 20 140/87 97 12/24/16 14:23 85 16 151/95 98 12/24/16 14:16 82 16 148/88 96 12/24/16 14:10 98.1 86 16 140/85 98 12/24/16 08:30 97.5 62 20 155/93 97 12/24/16 08:09 61 12/24/16 08:09 Room Air 12/24/16 04:00 97.3 65 17 135/84 97 12/24/16 00:00 98.4 74 18 141/89 97 12/23/16 22:21 82 12/23/16 21:20 96 Room Air 12/23/16 20:00 98.0 78 17 145/86 96 Physical Exam GENERAL: 21 year old male mobility obese resting in bed in no acute distress. SKIN: Warm and dry. HEAD: Atraumatic. Normocephalic. EYES: Pupils equal and round. No scleral icterus. No injection or drainage. ENT: No nasal bleeding or discharge. Mucous membranes pink and moist. NECK: Trachea midline. CARDIOVASCULAR: Regular rate and rhythm. RESPIRATORY: No accessory muscle use. Clear to auscultation. Breath sounds equal bilaterally. GASTROINTESTINAL: Abdomen soft, nondistended. Pain located to LEFT upper quadrant. MUSCULOSKELETAL: Extremities without clubbing, cyanosis, or edema. No obvious deformities. NEUROLOGICAL: Awake and alert. No obvious cranial nerve deficits. Motor grossly within normal limits. Five out of 5 muscle strength in the arms and legs. Normal speech. PSYCHIATRIC: Appropriate mood and affect; insight and judgment normal. Laboratory Laboratory Tests Test 12/24/16 06:40 Lipase 523 Result Diagram: 12/23/16 1017 12/23/16 1017 Imaging Last 48 hours Impressions Hepatobiliary Scan Nuclear Medicine 12/24/16 0000 Signed Impressions: Service Date/Time: Saturday, December 24, 2016 10:43 - CONCLUSION: There is no evidence of cystic duct or common duct obstruction. Poor response to CCK. Bean Becerra MD FACR Cholangiopancreatography MRI 12/23/16 0000 Signed Impressions: Service Date/Time: December 19:32 - CONCLUSION: Findings of pancreatitis. Fluid tingling in the lesser sac. Biliary tree appears normal Juni Obregon MD Assessment and Plan Assessment and Plan 21 year old male with acute pancreatitis secondary to elevated triglycerides; General Surgery request for evaluation of gallbladder; RUQ pain when eats fatty foods -HIDA unremarkable -Pancreatitis related to elevated triglycerides elevated -Clear liquids -Patient needs to have diabetic education since admission HmgA1C 13.8 -Recommend outpatient follow up with Dr. Tejeda for evaluation of gallbladder once acute pancreatitis resolves I CERTIFY AND ATTEST THAT I PERSONALLY EXAMINED THIS PATIENT AND REVIEWED THE EMR. I DISCUSSED HIS CONDITION WITH HIM AND HIS MOTHER AT THE BEDSIDE. RECOMMEND FU IN OFFICE. KAUR TEJEDA MD FACS Discussed Condition With Dr. Tejeda Mr. العراقي and mother KellyMisti AbadPark SHAHP December 24, 2016 17:41 Kaur Tejeda MD Feb 02, 2017 12:36
--- NOTE | 2016-12-24 22:21 | MB ---
cc: KAUR TEJEDA DATE OF CONSULTATION 12/24/16 ADDENDUM ASSESSMENT/PLAN I certify and attest that I personally examined this patient in his room. Ms. Mendoza documented our visit in the EMR. I spoke at length with the patient and his mother regarding his diagnosis of pancreatitis. I also reviewed the MRCP and HIDA scan results with them. I advised them that I would not recommend cholecystectomy at this time. I have recommended he follow up in the office for consideration of elective cholecystectomy. He is currently admitted for pancreatitis secondary to triglyceridemia. The patient does have a HIDA scan that shows no obstruction of the cystic duct and he does have activation of the gallbladder with CCK, although it is limited. I believe he may have a component of chronic cholecystitis secondary to his morbid obesity and diabetes. However, with the acute episode of pancreatitis, I would not recommend any elective surgery. I gave his mother my card and asked him to please follow up in the office after discharge and we could discuss elective cholecystectomy at that time. If the patient requires any further surgical consideration, please call use and we will be glad to see him in consultation again. Otherwise, I believe he can be safely discharged from a surgical standpoint to follow up with us in the office. MD GIGI Najera/ /9:45 PM /10:11 PM
[2016-12-25] VITALS: BP 149/96; PULSE 60; RESP 19; TEMP 97.2; O2SAT 97
[2016-12-25] MEDS: HYDROmorphone HCL PF 1 MG/ML VIAL IV PUSH PRN ×3 (02:31→10:39)
[2016-12-25] MEDS: HEPARIN SODIUM - SQ 10,000 UNITS/ML VIAL SQ SCH ×2 (02:32→15:00)
[2016-12-25 04:00] VITALS: BP 138/90; PULSE 67; RESP 19; TEMP 97.3; O2SAT 97
[2016-12-25] MEDS: CHLORHEXIDINE GLUCONATE 2 % 1 PACK (2 CLOTHS) TOP SCH (04:00)
[2016-12-25] MEDS: SODIUM CHLOR 0.9% 1000 ML INJ 1,000 ML IV SCH (05:54)
[2016-12-25] MEDS: INSULIN NovoLIN REGULAR SUPPLEMENTAL SCALE SQ SCH ×3 (06:00→16:00)
[2016-12-25 07:43] LABS: HEMATOCRIT 36.7 % (39.0-51.0); MEAN CELL VOLUME 81.9 FL (80.0-100.0); MEAN CORPUSCULAR HEMOGLOBIN 27.8 PG (27.0-34.0); MEAN CORPUSCULAR HGB CONC 33.9 % (32.0-36.0); PLATELET COUNT 235 TH/MM3 (150-450); RED BLOOD COUNT 4.48 MIL/MM3 (4.50-5.90); RED CELL DISTRIBUTION WIDTH 14.6 % (11.6-17.2); REVIEW FLAG FINAL; WHITE BLOOD COUNT 3.2 TH/MM3 (4.0-11.0)
[2016-12-25 08:00] VITALS: BP 146/90; PULSE 65; RESP 18; TEMP 96.6; O2SAT 97
[2016-12-25 08:13] LABS: ALT (GPT) 26 U/L (12-78); ANION GAP 9 MEQ/L (5-15); AST (GOT) 12 U/L (15-37); BICARBONATE 27.4 MEQ/L (21.0-32.0); BLOOD UREA NITROGEN 6 MG/DL (7-18); CHLORIDE 101 MEQ/L (98-107); GLOMERULAR FILTRATION RATE 258 ML/MIN (>89); POTASSIUM 3.5 MEQ/L (3.5-5.1); SODIUM (NA) 137 MEQ/L (136-145)
[2016-12-25 08:15] LABS: ALKALINE PHOSPHATASE 50 U/L (45-117); TOTAL BILIRUBIN ADULT 0.2 MG/DL (0.2-1.0)
[2016-12-25] MEDS: amLODIPine BESYLATE 5 MG TAB PO SCH ×2 (09:00→10:32)
--- NOTE | 2016-12-25 09:10 | HHI.PR ---
Subjective Remarks Follow up abdominal pain and nausea/vomiting. Patient seen and examined. Patient lying in bed, in no apparent distress. States that he feels much better today, pain resolved, denies any nausea or vomiting.Mother on phone, updated and all questions answered. Per mother he has been tolerating PO intake liquids and apparently has been eating sandwiches and doing well with those. Patient has been out of bed walking around. both mother and patient would like to know if he can go home later today instead of tomorrow Objective Vitals Vital Signs Date Time Temp Pulse Resp B/P Pulse Ox O2 Delivery O2 Flow Rate FiO2 12/25/16 04:00 97.3 67 19 138/90 97 12/25/16 00:00 97.2 60 19 149/96 97 12/24/16 21:17 97 Room Air 12/24/16 20:19 67 12/24/16 20:00 97.5 60 18 147/93 95 12/24/16 16:20 98.1 85 20 140/87 97 12/24/16 14:23 85 16 151/95 98 12/24/16 14:16 82 16 148/88 96 12/24/16 14:10 98.1 86 16 140/85 98 I/O 12/24/16 12/24/16 12/24/16 12/25/16 12/25/16 12/25/16 06:59 14:59 22:59 06:59 14:59 22:59 Intake Total 1190 ml 50 ml 1950 ml 480 ml 990 ml Balance 1190 ml 50 ml 1950 ml 480 ml 990 ml Intake Oral 240 ml 960 ml 480 ml IV Total 950 ml 50 ml 990 ml 990 ml # Voids 2 3 2 2 # Bowel Movements 0 Result Diagram: 12/25/16 0705 12/25/16 0705 Imaging Last Impressions Hepatobiliary Scan Nuclear Medicine 12/24/16 0000 Signed Impressions: Service Date/Time: Saturday, December 24, 2016 10:43 - CONCLUSION: There is no evidence of cystic duct or common duct obstruction. Poor response to CCK. Bean Becerra MD FACR Cholangiopancreatography MRI 12/23/16 0000 Signed Impressions: Service Date/Time: December 19:32 - CONCLUSION: Findings of pancreatitis. Fluid tingling in the lesser sac. Biliary tree appears normal Juni Obregon MD Abdomen/Pelvis CT 12/17/16 0000 Signed Impressions: Service Date/Time: Sunday, December 18, 2016 00:51 - CONCLUSION: 1. Findings consistent with acute pancreatitis. Prominent fluid adjacent to the pancreas and tracking into the paracolic gutters and pelvis. 2. Mild hepatic steatosis. Emanuel Dimas MD Objective Remarks GENERAL: Well-nourished, well-developed patient in NAD. CARDIOVASCULAR: Regular rate and rhythm. S1, S2 noted. No murmur appreciated. RESPIRATORY: No accessory muscle use. Clear to auscultation. Breath sounds equal bilaterally. GASTROINTESTINAL: Abdomen soft, nondistended. Patient has mild discomfort to palpation but no guarding or rebound. Normoactive bowel sounds x4. MUSCULOSKELETAL: No obvious deformities. Extremities without edema. NEUROLOGICAL: Awake and alert. No obvious cranial nerve deficits. Motor grossly within normal limits. 5/5 muscle strength in bilateral upper and lower extremities. Normal speech. PSYCHIATRIC: Appropriate mood and affect; insight and judgment normal. Procedures None Urinary Catheter: No Vascular Central Line Catheter: No A/P Problem List: (1) Pancreatitis ICD Code: K85.90 Status: Acute (2) Hyperglycemia due to type 1 diabetes mellitus ICD Code: E10.65 Status: Acute (3) Hypertriglyceridemia ICD Code: E78.1 Status: Acute (4) Hypokalemia ICD Code: E87.6 Status: Resolved Assessment and Plan Acute pancreatitis secondary to hypertriglyceridemia Biliary dyskinesia versus chronic cholecystitis - GI following, appreciate input. - Pain resolved - Status post EGD yesterday 12/24 - Gastritis with hiatal hernia noted, antrum biopsy performed. HIDA scan report reviewed by me, showed no obstruction but abnormal response to CCK. Concerning for biliary dyskinesia versus chronic cholecystitis. - General surgery consulted. No recommendations for surgery at this time. Recommended follow up outpatient. Patient aware. - Patient educated on importance of low fat diet and increase in PO fluid intake. - Plan will be to monitor toleration of breakfast and lunch. If tolerating with no nausea, vomiting, or abdominal pain will discharge home later today since per mother and pt confirms that he had a sandwich yesterday and did well (although per EMR he was supposed to be on a clear liquid diet). advance diet to low fat now. Nursing order in place to contact MD for possible d/c later today Hypertriglyceridemia: Continue gemfibrozil. Triglyceride level is improving. Diabetes mellitus, type I: - On Levemir to 10 units twice a day. Monitor Accu-Cheks and cover with sliding scale insulin. - Hemoglobin A1c is 13. Hypokalemia: Resolved. GI prophylaxis: Protonix. DVT prophylaxis: SCDs, subcutaneous heparin. Written by Val Millan, acting as scribe for Dr. Glover on 12/25/16 at 09:09. This note was transcribed by scribe Junior Millan. I, Dr. Daylin Glover personally performed the history, physical exam, and medical decision making; and confirmed the accuracy of the information in the transcribed note. Authenticated by Dr. Daylin Glover on 12/25/16 at 09:09 Discharge Planning anticipate d/c later today Val Millan December 25, 2016 09:10 Daylin Glover MD December 25, 2016 10:21 Daylin Glover MD December 25, 2016 10:21
[2016-12-25 09:17] VITALS: O2SAT 97
[2016-12-25] MEDS: INSULIN DETEMIR 100 UNITS/ML VIAL SQ SCH (10:31)
[2016-12-25] MEDS: GEMFIBROZIL 600 MG TAB PO SCH (10:31)
[2016-12-25] MEDS: PANTOPRAZOLE SOD 40 MG DELAYED RELEASE TAB PO SCH (10:31)
[2016-12-25] MEDS: ATORVASTATIN 20 MG TAB PO SCH (10:31)
[2016-12-25] MEDS: DOCUSATE SODIUM 100 MG CAP PO SCH (10:32)
[2016-12-25 12:00] VITALS: BP 146/93; PULSE 74; RESP 16; TEMP 97; O2SAT 97
[2016-12-25] MEDS: oxyCODONE/ACETAMINOPHEN 5 MG/325 MG TAB PO PRN (13:11)
--- NOTE | 2016-12-25 15:16 | HHI.GIFU ---
Subjective Remarks Sitting up in bed. States he feels much better today. Tolerating regular diet. Hoping to go home soon. (Marlin Rahman) Objective Vitals I&O Vital Signs Date Time Temp Pulse Resp B/P Pulse Ox O2 Delivery O2 Flow Rate FiO2 12/25/16 12:00 97.0 74 16 146/93 97 12/25/16 09:17 97 12/25/16 08:00 96.6 65 18 146/90 97 12/25/16 04:00 97.3 67 19 138/90 97 12/25/16 00:00 97.2 60 19 149/96 97 12/24/16 21:17 97 Room Air 12/24/16 20:19 67 12/24/16 20:00 97.5 60 18 147/93 95 12/24/16 16:20 98.1 85 20 140/87 97 I/O 12/24/16 12/24/16 12/24/16 12/25/16 12/25/16 12/25/16 07:00 15:00 23:00 07:00 15:00 23:00 Intake Total 1190 ml 50 ml 1950 ml 480 ml 990 ml Balance 1190 ml 50 ml 1950 ml 480 ml 990 ml Intake Oral 240 ml 960 ml 480 ml IV Total 950 ml 50 ml 990 ml 990 ml # Voids 2 3 2 2 # Bowel Movements 0 Laboratory Laboratory Tests Test 12/25/16 07:05 White Blood Count 3.2 Red Blood Count 4.48 Hemoglobin 12.4 Hematocrit 36.7 Mean Corpuscular Volume 81.9 Mean Corpuscular Hemoglobin 27.8 Mean Corpuscular Hemoglobin 33.9 Concent Red Cell Distribution Width 14.6 Platelet Count 235 Mean Platelet Volume 7.7 Sodium Level 137 Potassium Level 3.5 Chloride Level 101 Carbon Dioxide Level 27.4 Anion Gap 9 Blood Urea Nitrogen 6 Creatinine 0.49 Estimat Glomerular Filtration 258 Rate Random Glucose 275 Calcium Level 8.7 Total Bilirubin 0.2 Aspartate Amino Transf 12 (AST/SGOT) Alanine Aminotransferase 26 (ALT/SGPT) Alkaline Phosphatase 50 Total Protein 6.2 Albumin 2.4 Imaging Last Impressions Hepatobiliary Scan Nuclear Medicine 12/24/16 0000 Signed Impressions: Service Date/Time: Saturday, December 24, 2016 10:43 - CONCLUSION: There is no evidence of cystic duct or common duct obstruction. Poor response to CCK. Bean Becerra MD FACR Cholangiopancreatography MRI 12/23/16 0000 Signed Impressions: Service Date/Time: December 19:32 - CONCLUSION: Findings of pancreatitis. Fluid tingling in the lesser sac. Biliary tree appears normal Juni Obregon MD Abdomen/Pelvis CT 12/17/16 0000 Signed Impressions: Service Date/Time: Sunday, December 18, 2016 00:51 - CONCLUSION: 1. Findings consistent with acute pancreatitis. Prominent fluid adjacent to the pancreas and tracking into the paracolic gutters and pelvis. 2. Mild hepatic steatosis. Emanuel Dimas MD Physical Exam HEENT: Normocephalic; atraumatic; CHEST: CTA CARDIAC: RRR ABDOMEN: Soft, obese, nontender; bowel sounds are present in all four quadrants. EXTREMITIES: No clubbing, cyanosis, or edema. SKIN: Normal; no rash; no jaundice. SLAG WORKER: No focal deficits; alert and oriented times three. (Marlin Rahman) Assessment and Plan Plan ASSESSMENT - Acute pancreatitis, most likely secondary to hypertriglyceridemia. Abdomen/ Pelvis CT (12/17/16)-----> 1. Findings consistent with acute pancreatitis. Prominent fluid adjacent to the pancreas and tracking into the paracolic gutters and pelvis. 2. Mild hepatic steatosis. One prior history about a year ago, etiology not determined at that time. MRCP ()-----> Findings of pancreatitis. Fluid tingling in the lesser sac. Biliary tree appears normal Pt with significant hypertriglyceridemia on admission at 2462. EGD (12/24/16)----> 1. Gastritis antrum-biopsy 2. Retroflexed views revealed a hiatal hernia. HIDA (12/24/16)----> There is no evidence of cystic duct or common duct obstruction. Poor response to CCK. S/P GS evaluation, low fat diet, consider elective lap. cholecystectomy as outpatient. Clinically much improved and now tolerating low fat diet without nausea/vomiting/pain. Okay to d/c home from GI standpoint. D/W patient importance of low fat diet, avoiding ETOH/Marijuana, good control of triglycerides. Lipase 523. - Severe hypertriglyceridemia. On admission, 2462. On Gemfibrozil, now 182. - GERD - pt c/o worsening epigastric burning after eating and acid reflux. Will make PPI BID and do EGD tomorrow. - DM per primary PLAN: - Okay to d/c home - Low fat diet - No ETOH - No Marijuana - Continue gemfibrozil - FU [facility] 2 weeks - FU GS as outpatient - Supportive care - Pt seen and examined by Dr. Vann and myself and this note is written on her behalf (Marlin Rahman) Marlin Rahman December 25, 2016 15:16 Chloé Vann MD January 01, 2017 09:55
[2016-12-25] MEDS ORDERED: GEMF600 PO (16:55)
[2016-12-25] MEDS ORDERED: PANT40TA3 PO (16:55)
[2016-12-25] MEDS ORDERED: AMLO5 PO (16:55)
--- NOTE | 2016-12-25 16:55 | HHI.DS ---
Discharge Summary Admission Date December 17, 2016 at 13:27 Discharge Date: December 25, 2016 Admitting Diagnosis acute pancreatitis, hyperglycemia, hyperlipidemia (1) Pancreatitis ICD Code: K85.90 Diagnosis: Principal (2) Hyperglycemia due to type 1 diabetes mellitus ICD Code: E10.65 Diagnosis: Principal (3) Hypertriglyceridemia ICD Code: E78.1 Diagnosis: Principal (4) Hypokalemia ICD Code: E87.6 Diagnosis: Principal Procedures None Brief History - From Admission The patient is a 21-year-old male with past medical history of insulin dependent diabetes mellitus, juvenile onset, and morbid obesity, who presented to [facility] ED with a history of epigastric abdominal pain associated with nausea and vomiting. He denies any associated symptoms of fever, chills or any constitutional symptoms. In addition, he denies any chest pain, shortness of breath, orthopnea, PND or edema of the lower extremities. He has a history of pancreatitis in the past. He has not had any DKA in the past. On arrival to the ED he was found to have a blood sugar of 392 and elevated lipase level at 4723. In addition, the patient was hyponatremic with a sodium level of 128. His beta-hydroxybutyrate measured at 4.28. His potassium level was unmeasured due to hemolysis and lipemia of the blood sample. In the ER he was given 12 units of IV insulin x1, in addition to 2 liters of normal saline. The patient also received Dilaudid 2 mg IV for pain, morphine and Zofran. The patient is afebrile and is on room air oxygen when seen. He denies any diarrhea or constipation, chest pain or shortness of breath. CBC/BMP: 12/25/16 0705 12/25/16 0705 Significant Findings Laboratory Tests Test 12/23/16 12/23/16 12/24/16 12/25/16 05:34 10:17 06:40 07:05 Lipase 610 U/L 523 U/L (73-393) (73-393) Hematocrit 38.2 % 36.7 % (39.0-51.0) (39.0-51.0) Neutrophils (%) (Auto) 73.3 % (16.0-70.0) Potassium Level 3.4 MEQ/L (3.5-5.1) Blood Urea Nitrogen 4 MG/DL (7-18) 6 MG/DL (7-18) Creatinine 0.49 MG/DL 0.49 MG/DL (0.60-1.30) (0.60-1.30) Random Glucose 202 MG/DL 275 MG/DL (74-106) (74-106) Albumin 2.6 GM/DL 2.4 GM/DL (3.4-5.0) (3.4-5.0) White Blood Count 3.2 TH/MM3 (4.0-11.0) Red Blood Count 4.48 MIL/MM3 (4.50-5.90) Hemoglobin 12.4 GM/DL (13.0-17.0) Aspartate Amino Transf 12 U/L (15-37) (AST/SGOT) Total Protein 6.2 GM/DL (6.4-8.2) Imaging Last Impressions Hepatobiliary Scan Nuclear Medicine 12/24/16 0000 Signed Impressions: Service Date/Time: Saturday, December 24, 2016 10:43 - CONCLUSION: There is no evidence of cystic duct or common duct obstruction. Poor response to CCK. Bean Becerra MD FACR Cholangiopancreatography MRI 12/23/16 0000 Signed Impressions: Service Date/Time: December 19:32 - CONCLUSION: Findings of pancreatitis. Fluid tingling in the lesser sac. Biliary tree appears normal Juni Obregon MD Abdomen/Pelvis CT 12/17/16 0000 Signed Impressions: Service Date/Time: Sunday, December 18, 2016 00:51 - CONCLUSION: 1. Findings consistent with acute pancreatitis. Prominent fluid adjacent to the pancreas and tracking into the paracolic gutters and pelvis. 2. Mild hepatic steatosis. Emanuel Dimas MD PE at Discharge GENERAL: Well-nourished, well-developed patient in NAD. CARDIOVASCULAR: Regular rate and rhythm. S1, S2 noted. No murmur appreciated. RESPIRATORY: No accessory muscle use. Clear to auscultation. Breath sounds equal bilaterally. GASTROINTESTINAL: Abdomen soft, nondistended. Patient has mild discomfort to palpation but no guarding or rebound. Normoactive bowel sounds x4. MUSCULOSKELETAL: No obvious deformities. Extremities without edema. NEUROLOGICAL: Awake and alert. No obvious cranial nerve deficits. Motor grossly within normal limits. 5/5 muscle strength in bilateral upper and lower extremities. Normal speech. PSYCHIATRIC: Appropriate mood and affect; insight and judgment normal. Transfer Summary Patient admitted with recurrent pancreatitis secondary to elevated triglyceride. Treated with insulin drip. Triglycerides currently less than 500. Hospital Course Acute pancreatitis secondary to hypertriglyceridemia Biliary dyskinesia versus chronic cholecystitis - GI following, appreciate input. - Pain resolved - Status post EGD yesterday 12/24 - Gastritis with hiatal hernia noted, antrum biopsy performed. HIDA scan report reviewed by me, showed no obstruction but abnormal response to CCK. Concerning for biliary dyskinesia versus chronic cholecystitis. - General surgery consulted. No recommendations for surgery at this time. Recommended follow up outpatient. Patient aware. - Patient educated on importance of low fat diet and increase in PO fluid intake. - Pt's diet was advanced to a low fat diet and he tolerated it well. GI evaluated the patient today and was ok for him to be discharged as well. Hypertriglyceridemia: Continue gemfibrozil as an outpatient, consider repeating lipid panel in 3 months. Triglyceride level have been improving. HTN: script for amlodipine provided as well. Pt Condition on Discharge: Stable Discharge Disposition: Discharge Home Discharge Time: > 30 minutes Discharge Instructions DIET: Follow Instructions for: As Tolerated, No Restrictions Additional Diet Instructions: low fat diet Activities you can perform: Regular-No Restrictions Follow up Referrals: Gastroenterology - 2 Weeks [facility] - 1 Week New Medications: Amlodipine (Norvasc) 5 Mg Tab 5 MG PO DAILY Days 30 TAB Gemfibrozil (Lopid) 600 Mg Tab 600 MG PO BIDAC Days 30 TAB Pantoprazole (Pantoprazole) 40 Mg Tab 40 MG PO BID Days 30 TAB Continued Medications: Insulin Aspart Inj (Novolog Inj) 1,000 Unit/10 Ml Vial 2-15 UNITS SQ ACHS Max dose at bedtime ( ) units; sugars less than 70,(0) units ; sugars 150-199,(2) units; sugars 200-249,(4) units; sugars 250-299,(7) units; sugars 300-349,(10) units; sugars greater than 349,(12)units Blood Sugar Management #10 Ref 0 ML Insulin Detemir Inj (Levemir Inj) 1,000 unit/ 10 ML Vial 14 UNITS SQ HS Do not mix with any other Insulin. Blood Sugar Management Ref 0 VIAL Additional Information written script for norco 5/325 1 tab po q4-6hrs prn #20 was left for pt's mother to pick up driver for him at the front [employer] as pt's mother was very concerned about him having pain. I did explain to mother that pt must adhere to a low fat diet and also drink plenty of fluids. if Pain less than 5, he should take tylenol prn but he can use the norco for pain greater than 5. If pain is excruciating then pt needs to be re-evaluated. Daylin Glover MD December 25, 2016 16:55
[2016-12-25 16:56] VITALS: O2SAT 97
== END 2016-12-25 18:36 | disposition home or self-care (01) | DRG 439 ==
LOC: NEPC 11:01 → NEDA 13:27 → HIME 15:55 → HOCA 12-19 17:30
PROVIDERS: ADMIT Hospitalist; ATTEND Hospitalist
PROC: 0DB68ZX Excision of Stomach, Via Natural or Artificial Opening Endoscopic, Diagnostic (ICD-10-PCS; principal; 2016-12-24 13:46)
DX: K85.80 Other acute pancreatitis without necrosis or infection (principal); E87.1 Hypo-osmolality and hyponatremia; E10.69 Type 1 diabetes mellitus with other specified complication; K76.0 Fatty (change of) liver, not elsewhere classified; E10.65 Type 1 diabetes mellitus with hyperglycemia; D75.1 Secondary polycythemia; E83.39 Other disorders of phosphorus metabolism; Z79.4 Long term (current) use of insulin; E78.5 Hyperlipidemia, unspecified; E66.01 Morbid (severe) obesity due to excess calories; I10 Essential (primary) hypertension; K86.1 Other chronic pancreatitis; E78.1 Pure hyperglyceridemia; E78.00 Pure hypercholesterolemia, unspecified; Z72.0 Tobacco use; K81.1 Chronic cholecystitis; E87.6 Hypokalemia; K21.9 Gastro-esophageal reflux disease without esophagitis; K29.70 Gastritis, unspecified, without bleeding; K44.9 Diaphragmatic hernia without obstruction or gangrene; R50.9 Fever, unspecified
CPT/HCPCS: 36600; 74177; 74181; 76377; 76937; 78226; 80048; 80053; 80061; 80307; 81001; 82010; 82805; 82948; 83036; 83605; 83690; 83735; 84100; 84478; 85007; 85025; 85027; 85610; 85730; 87040; 87641; 88305; 96374; 96375; A9537; C9113; J0360; J0780; J1170; J1644; J1815; J1817; J2270; J2405; J2543; J3475; J7030; J7050; Q9963; Q9967